=== PATIENT | female | born 1945 | race Caucasian/White ===

== ENCOUNTER 2017-11-04 12:36 | Emergency (ER) | payer OTHER, SELFPAY ==
--- NOTE | 2017-11-04 13:04 | ED_ITS ---
HPI - Extremity Injury (Lower) <Angel JimenezBEN skelton - Last Filed: 11/04/17 21:47> General Chief Complaint: Extremity Injury, Lower Stated Complaint: THINKS SHE BROKE HER RIGHT KNEE Time Seen by Provider: 11/04/17 13:04 History of Present Illness HPI Narrative: 72-year-old female here for complaint of pain into her right knee and right lower extremity. She states that shortly prior to arrival that she had a ground level fall inside her garden today where she landed on her right knee. She reports pain is to the right knee that radiates down into the tib-fib area. Increased pain with motion of the right knee and with weight- bearing. Pain is limited to the right lower extremity and knee. She denies any other injuries. Patient feels that she twisted the knee and she fell. No other concerns or complaints. MD complaint: knee injury Related Data Home Medications Medication Instructions Recorded Confirmed aspirin 81 mg PO DAILY #0 03/03/11 11/04/17 Glucose: Home Monitoring Kit 1 kit DIRECTED 11/04/17 11/04/17 Nebulizer: Home Unit 1 pkg DIRECTED 11/04/17 11/04/17 Spacer: Inhaler Spacer Device 1 pac DIRECTED 11/04/17 11/04/17 beclomethasone dipropionate [Qvar] 1 puff INH BID 11/04/17 11/04/17 clopidogrel 1 tab PO DAILY 11/04/17 11/04/17 diltiazem HCl [DILT-XR] 1 cap PO BID 11/04/17 11/04/17 ipratropium bromide 2.5 ml INH BID PRN 11/04/17 11/04/17 omeprazole 20 mg PO QPM 11/04/17 11/04/17 sertraline 150 mg PO BEDTIME 11/04/17 11/04/17 Previous Rx's Medication Instructions Recorded furosemide [Lasix] 20 mg PO QDAY #30 tab 01/28/16 nitroglycerin [Nitrostat] 0.4 mg SUBLINGUAL PRN #30 tab 07/20/16 levalbuterol HCl [Xopenex] 0.63 mg INH Q4HP PRN #2 box 09/18/16 metformin 1,000 mg PO BIDCC #180 tab 11/12/16 levalbuterol tartrate [Xopenex HFA] 2 puff INH Q4HP PRN #15 gm 03/31/17 potassium chloride 10 meq PO QDAY #30 tab 07/02/17 Allergies Allergy/AdvReac Type Severity Reaction Status Date / Time amoxicillin [AMOXICILLIN] Allergy Mild GI Unverified 08/25/17 12:27 erythromycin base Allergy Mild N/V Unverified 08/25/17 12:27 [ERYTHROMYCIN BASE] lanolin [LANOLIN] Allergy Mild Roof of Unverified 08/25/17 12:27 mouth tastes greasy Review of Systems <BEN Tony - Last Filed: 11/04/17 21:47> Constitutional Denies chills, Denies fever(s), Denies lethargy and Denies weakness Eyes Denies change in vision, Denies eye discharge, Denies irritation and Denies loss of vision ENT Ears, Nose, Mouth, and Throat: Denies change in voice, Denies neck pain and Denies sore throat Cardiovascular Denies chest pain, Denies irregular heart rhythm, Denies lightheadedness, Denies palpitations, Denies dyspnea, Denies dyspnea on exertion and Denies orthopnea Respiratory Denies cough, Denies dyspnea, Denies dyspnea on exertion and Denies wheezing Gastrointestinal Gastrointestinal: Denies abdominal pain, Denies change in bowel habits, Denies diarrhea, Denies nausea and Denies vomiting Genitourinary Denies hematuria, Denies flank pain, Denies urinary incontinence and Denies urinary urgency Musculoskeletal Denies neck pain Comments: Left knee and left lower extremity pain Integumentary/Breasts Denies pruritus, Denies erythema, Denies rash and Denies wounds Neurologic Denies confusion, Denies loss of vision and Denies weakness Psychiatric Denies anxiety, Denies confusion, Denies depression, Denies homicidal ideation and Denies suicidal ideation Endocrine Denies palpitations Allergic/Immunologic Denies wheezing Exam <BEN Tony - Last Filed: 11/04/17 21:47> Initial Vital Signs Initial Vital Signs: Vital Signs Pulse Rate 57 L 11/04/17 13:09 Respiratory Rate 21 11/04/17 13:09 Blood Pressure 127/68 H 11/04/17 13:09 Pulse Oximetry 96 11/04/17 13:09 Const General: cooperative and well developed Nutritional Appearance: well nourished Orientation: alert, awake, oriented x3 and not confused HENMT Mouth: oral mucosae normal and moist mucous membranes Eyes Conjunctivae: conjunctivae normal Sclera: sclerae normal Pupils: PERRL EOM: EOM intact bilaterally Resp Effort & Inspection: normal respiratory effort, able to speak in complete sentences, no respiratory distress and no use of accessory muscles Auscultation: clear to auscultation bilaterally, no rales, no rhonchi and no wheezes Cardio Rate: regular rate Rhythm: regular rhythm Heart Sounds: no click, no gallops, no murmurs and no rubs Pulses: normal peripheral pulses Skin General: no rashes or lesions noted, No jaundice and No petechiae Extrem Other: Right knee with no swelling and no ecchymosis. No deformities. Right tib- fib area with no signs of trauma. Distal sensation is intact. Distal range of motion is intact. Distal pulses intact. Negative anterior posterior drawer sign <Aldair Boyle DO - Last Filed: 11/05/17 07:15> Initial Vital Signs Initial Vital Signs: Vital Signs Pulse Rate 57 L 11/04/17 13:09 Respiratory Rate 21 11/04/17 13:09 Blood Pressure 127/68 H 11/04/17 13:09 Pulse Oximetry 96 11/04/17 13:09 Course <BEN Tony - Last Filed: 11/04/17 21:47> Orders Ordered: Discontinued Medications Ibuprofen (Advil) 400 mg PO NOW ONE Stop: 11/04/17 13:26 Last Admin: 11/04/17 13:53 Dose: 400 mg Vital Signs - 8 hr 11/04/17 14:37 Pulse Rate 70 Blood Pressure [Left Arm] 118/71 Pulse Oximetry 93 <DO Vamsi Wood Last Filed: 11/05/17 07:15> Orders Ordered: Discontinued Medications Ibuprofen (Advil) 400 mg PO NOW ONE Stop: 11/04/17 13:26 Last Admin: 11/04/17 13:53 Dose: 400 mg Vital Signs - 8 hr 11/04/17 14:37 Pulse Rate 70 Blood Pressure [Left Arm] 118/71 Pulse Oximetry 93 MDM - Extremity Injury (Lower) <BEN Tony - Last Filed: 11/04/17 21:47> Imaging Data R knee: Radiologist's impression: PROCEDURE: XR KNEE RT 3V INDICATIONS: Ground level fall with pain into right knee and lower leg TECHNIQUE: 3 views of the knee were acquired. COMPARISON: [facility], KNEE 1-2 VIEWS RIGHT, 03/25/2013, 11:37. [facility], XR TIBIA FIBULA RT 2V, 11/04/2017, 13:10. [facility], KNEE 3V RIGHT, 08/17/2015, 17:40. FINDINGS: Bones: No displaced fractures are seen. Degenerative changes are seen, with moderate to severe lateral femorotibial joint space narrowing seen. There is associated remodeling changes with osteophyte formation along the jointline. On the sunrise view, there is mild to moderate patellofemoral joint space narrowing seen. Osteophyte formation can be seen along the margins of the patella. No suspicious lytic or blastic lesions are seen. Soft tissues: There is a mild joint effusion. No suspicious soft tissue calcifications. IMPRESSION: No acute bony abnormality is detected. Osteoarthritic degenerative changes are seen, which are most prominent involving the lateral femorotibial compartment. Dictated by: Shai Moore M.D. on 11/04/2017 at 12:46 Approved by: Shai Moore M.D. on 11/04/2017 at 12:47 Right tib-fib : Radiologist's impression: PROCEDURE: XR TIBIA FUBULA RT 2V INDICATIONS: Ground level fall with pain to right knee and lower leg TECHNIQUE: 2 views of the tibia and fibula were acquired. COMPARISON: [facility], , XR KNEE RT 3V, 11/04/2017, 13:10. FINDINGS: Bones: No fractures or dislocations. No suspicious bony lesions. Degenerative changes are seen, particularly affecting the lateral femorotibial compartment. Soft tissues: No suspicious soft tissue calcifications or masses. IMPRESSION: No fractures are seen. Dictated by: Shai Moore M.D. on 11/04/2017 at 12:48 Approved by: Shai Moore M.D. on 11/04/2017 at 12:48 MDM Narrative Medical decision making narrative: X-rays of the right knee and right tib-fib were negative for any acute findings. Signs and symptoms presents as sprain / contusion to the right knee. She is placed in a knee immobilizer for comfort and support. Patient offered crutches however she recently had surgery to her hands so will not be able to tolerate crutches. She is encouraged to use wheelchair until able to bear weight without any discomfort. [id number] Tylenol or Motrin as needed for any discomfort. Ice and elevation. Follow up with primary care provider the next few days. Return emergency room for any worsening symptoms. Discharge Plan Departure Patient Disposition: Home, Self-Care Clinical Impression: Knee pain, right Discharge Date/Time: 11/04/17 14:49 Interventions: ED Discharge Assessment Last Done: 11/04/17 14:46 Instructions: DI for Knee Pain Activity Restrictions/Additional Instructions: X-rays of the right knee and right lower extremity were obtained were negative for any acute fractures. Signs and symptoms presents as sprain/bruise to the right knee. You have been placed in the immobilizer for comfort and support use as directed. Recommend using wheelchair for nonweightbearing until able to bear weight without discomfort. Use [id number] Tylenol or Motrin as needed for any discomfort. Ice and elevation help with swelling. Follow up with her primary care provider for further evaluation in the next few days. Return emergency room for any worsening symptoms. Prescriptions: No Action aspirin 81 mg Tablet,Delayed Release (Dr/Ec) 81 mg PO DAILY Qty: 0 RF: 0 furosemide [Lasix] 20 MG tablet 20 mg PO QDAY Qty: 30 RF: 4 nitroglycerin [Nitrostat] 0.4 MG tablet, sublingual 0.4 mg Sublingual PRN Qty: 30 RF: 0 levalbuterol HCl [Xopenex] 0.63 MG/3 ML solution for nebulization 0.63 mg INH Q4HP PRNQty: 2 RF: 2 metformin 1,000 MG tablet 1,000 mg PO BIDCC Qty: 180 RF: 3 levalbuterol tartrate [Xopenex HFA] 45 MCG/INH HFA aerosol inhaler 2 puff INH Q4HP PRNQty: 15 RF: 0 potassium chloride 10 MEQ tablet extended release 10 meq PO QDAY Qty: 30 RF: 5 sertraline 100 MG tablet 150 mg PO BEDTIME RF: 0 beclomethasone dipropionate [Qvar] 80 MCG/PUFF aerosol 1 puff INH BID RF: 0 ipratropium bromide 0.2 MG/1 ML solution 2.5 ml INH BID PRN (Reason: Shortness Of Breath) RF: 0 omeprazole 20 MG tablet,delayed release (DR/EC) 20 mg PO QPM RF: 0 Glucose: Home Monitoring Kit 1 kit DIRECTED RF: 0 Spacer: Inhaler Spacer Device 1 pac DIRECTED RF: 0 Nebulizer: Home Unit 1 pkg DIRECTED RF: 0 clopidogrel 75 mg Tablet 1 tab PO DAILY RF: 0 diltiazem HCl [DILT-XR] 120 mg Capsule,Ext.Rel 24h Degradable 1 cap PO BID RF: 0 Referrals: Shelia Godinez DO [Primary Care Provider] - <Aldair Boyle DO - Last Filed: 11/05/17 07:15> Cosign ED Attending Landen[place] Attestation: I was available for consultation during this patient's emergency department encounter
[2017-11-04 13:09] VITALS: BP 127/68; PULSE 57; RESP 21; O2SAT 96
[2017-11-04 13:23] VITALS: PULSE 57; RESP 21; O2SAT 96; BMI 34.3
--- NOTE | 2017-11-04 13:25 | DI.RAD.S_ITS ---
PROCEDURE: XR TIBIA FUBULA RT 2V INDICATIONS: Ground level fall with pain to right knee and lower leg TECHNIQUE: 2 views of the tibia and fibula were acquired. COMPARISON: [facility], , XR KNEE RT 3V, 11/04/2017, 13:10. FINDINGS: Bones: No fractures or dislocations. No suspicious bony lesions. Degenerative changes are seen, particularly affecting the lateral femorotibial compartment. Soft tissues: No suspicious soft tissue calcifications or masses. IMPRESSION: No fractures are seen. Dictated by: Shai Moore M.D. on 11/04/2017 at 12:48 Approved by: Shai Moore M.D. on 11/04/2017 at 12:48
--- NOTE | 2017-11-04 13:25 | DI.RAD.S_ITS ---
PROCEDURE: XR KNEE RT 3V INDICATIONS: Ground level fall with pain into right knee and lower leg TECHNIQUE: 3 views of the knee were acquired. COMPARISON: [facility], , KNEE 1-2 VIEWS RIGHT, 03/25/2013, 11:37. [facility], , XR TIBIA FIBULA RT 2V, 11/04/2017, 13:10. [facility], , KNEE 3V RIGHT, 08/17/2015, 17:40. FINDINGS: Bones: No displaced fractures are seen. Degenerative changes are seen, with moderate to severe lateral femorotibial joint space narrowing seen. There is associated remodeling changes with osteophyte formation along the jointline. On the sunrise view, there is mild to moderate patellofemoral joint space narrowing seen. Osteophyte formation can be seen along the margins of the patella. No suspicious lytic or blastic lesions are seen. Soft tissues: There is a mild joint effusion. No suspicious soft tissue calcifications. IMPRESSION: No acute bony abnormality is detected. Osteoarthritic degenerative changes are seen, which are most prominent involving the lateral femorotibial compartment. Dictated by: Shai Moore M.D. on 11/04/2017 at 12:46 Approved by: Shai Moore M.D. on 11/04/2017 at 12:47
[2017-11-04] MEDS: IBUPROFEN 400 MG TABLET PO (13:53)
[2017-11-04 14:37] VITALS: BP 118/71; PULSE 70; O2SAT 93
== END 2017-11-04 14:49 | disposition home or self-care (01) ==
PROVIDERS: Emergency Provider Nurse Practitioner Family; PCP Family Medicine
DX: M25.561 Pain in right knee (principal); W18.30XA Fall on same level, unspecified, initial encounter
CPT/HCPCS: 73562; 73590; 99283

== ENCOUNTER → 2018-05-13 11:57 | Outpatient (CLI) | payer OTHER, MEDICARE, SELFPAY ==
[2018-05-13 12:33] LABS: Add Manual Diff / Slide Review NO; Basophils Percent Auto 0.6 % (0-2); Hematocrit 40.2 % (36-46); Hemoglobin 13.4 g/dL (12.0-16.0); Lymphocytes Percent Auto 21.7 % (25-40); Mean Corpuscular HGB Conc 33.2 % (30-36); Mean Corpuscular Hemoglobin 28.3 PG (26-34); Monocytes Percent Auto 4.1 % (3-14); Neutrophils Absolute Auto 5300 /uL (1500-7000); Neutrophils Percent Auto 71.6 % (50-75); Platelet Count 260 X10^3/uL (150-400); Red Blood Cell Count 4.73 X10^6/uL (4.0-5.2); Red Cell Distribution Width 14.7 % (11.6-14.8); White Blood Cell Count 7.3 X10^3/uL (4.5-11.0)
[2018-05-13 12:45] LABS: Hemoglobin A1C% w Est Avg Glu 8.4 % (4.0-6.0)
[2018-05-13 13:00] LABS: Alanine Aminotransferase 20 IU/L (9-52); Albumin 4.6 g/dL (3.5-5.0); Albumin Globulin Ratio 1.4 (1.0-2.8); Alkaline Phosphatase 87 U/L (38-126); Aspartate Aminotransferase 22 IU/L (14-36); Bilirubin Total 0.7 mg/dL (0.2-1.3); Blood Urea Nitrogen 18 mg/dL (7-17); Calcium 9.3 mg/dL (8.4-10.2); Carbon Dioxide 29 mmol/L (22-32); Chloride 101 mmol/L (98-107); Cholesterol 148 mg/dL (140-199); Estimated Glomerular Filt Rate 54.7 mL/min (>60); Globulin 3.3 g/dL (1.7-4.1); Glucose 250 mg/dL (80-110); HDL Cholesterol 38 mg/dL (40-60); HEMOLYSIS < 15 (0-50); LDL Cholesterol Calculated 71 mg/dL (<100); Sodium 147 mmol/L (137-145); Total Protein 7.9 g/dL (6.3-8.2); Triglycerides 196 mg/dL (35-150)
== END ==
PROVIDERS: PCP Family Medicine; Visit Provider Family Medicine
DX: E66.9 Obesity, unspecified (principal); E78.5 Hyperlipidemia, unspecified; F32.9 Major depressive disorder, single episode, unspecified; I10 Essential (primary) hypertension; I48.91 Unspecified atrial fibrillation; E11.9 Type 2 diabetes mellitus without complications
CPT/HCPCS: 36415; 80053; 80061; 83036; 85025

== ENCOUNTER → 2018-11-24 16:19 | Outpatient (CLI) | payer OTHER, MEDICARE, SELFPAY ==
[2018-11-24 17:21] LABS: Hemoglobin A1C% w Est Avg Glu 8.5 % (4.0-6.0)
[2018-11-24 19:04] LABS: Alanine Aminotransferase 18 IU/L (9-52); Albumin 4.5 g/dL (3.5-5.0); Albumin Globulin Ratio 1.3 (1.0-2.8); Alkaline Phosphatase 89 U/L (38-126); Aspartate Aminotransferase 22 IU/L (14-36); Bilirubin Total 0.8 mg/dL (0.2-1.3); Blood Urea Nitrogen 21 mg/dL (7-17); Calcium 9.7 mg/dL (8.4-10.2); Carbon Dioxide 29 mmol/L (22-32); Chloride 102 mmol/L (98-107); Estimated Glomerular Filt Rate 54.7 mL/min (>60); Globulin 3.4 g/dL (1.7-4.1); Glucose 183 mg/dL (80-110); HEMOLYSIS < 15 (0-50); Potassium 4.3 mmol/L (3.4-5.1); Sodium 144 mmol/L (137-145); Total Protein 7.9 g/dL (6.3-8.2)
== END ==
PROVIDERS: PCP Family Medicine; Visit Provider Family Medicine
DX: E11.9 Type 2 diabetes mellitus without complications (principal)
CPT/HCPCS: 36415; 80053; 83036

== ENCOUNTER 2019-04-20 10:16 | Emergency (ER) | payer OTHER, SELFPAY ==
--- NOTE | 2019-04-20 10:32 | DI.RAD.S_ITS ---
PROCEDURE: XR KNEE RT 3V INDICATIONS: multiple falls - right knee pain TECHNIQUE: 3 views of the knee were acquired. COMPARISON: [facility], , XR KNEE RT 3V, 11/04/2017, 13:10. FINDINGS: Bones: No fractures or dislocations. No suspicious bony lesions. Moderate tricompartmental periarticular osteophyte formation. Soft tissues: Small knee joint effusion. No suspicious soft tissue calcifications. IMPRESSION: 1. Osteoarthritis. 2. Small knee joint effusion. 3. No acute fracture. No osseous lesion. If symptoms and/or clinical suspicion for pathology persist, further assessment with repeat, or advanced imaging (e.g., CT, MRI, or bone scan) may be helpful for further assessment. Dictated by: Radha Alfonso M.D. on 04/20/2019 at 11:04 Approved by: Radha Alfonso M.D. on 04/20/2019 at 11:06
[2019-04-20 10:34] VITALS: BP 164/79; PULSE 79; RESP 18; TEMP 36.9; O2SAT 95
--- NOTE | 2019-04-20 11:32 | PC.NURSE ---
Patient reports she was lifting daugther into wheelchair about a month ago and twisted her right knee and states she felt the two bones pop and touch each other and grind against each other. She states she has had multiple surgeries on the right knee in the past. She reports she stayed off of the knee for a week and iced it but it is still very painful when she walks on the right lateral portion of knee where it connects to the tibia/fibula. Also reports swelling. States she is afraid she may have a hairline fracture and wants to be sure. Has an MRI of knee scheduled for wednesday.
--- NOTE | 2019-04-20 11:55 | ED.LOWEXIN ---
HPI - Extremity Injury (Lower) <Kely Vogt PA-C - Last Filed: 04/20/19 20:33> General Chief Complaint: Extremity Injury, Lower Stated Complaint: hurt r knee month ago getting worse Time Seen by Provider: 04/20/19 11:07 Source: patient Mode of arrival: Ambulatory Limitations: no limitations History of Present Illness HPI Narrative: This 74-year-old female comes to ED secondary to persistent right knee pain, worsening over the last month or so after she pivoted awkwardly and twisted it. She has continued to have increased pain including in the last week. She indicates a ?hot spot? on the lateral side of the knee where it feels like the bones grind and there is an area that mcgregor and radiates down to her ankle at times. She states that multiple times yesterday she felt like the knee slipped sideways and causes a grinding sensation. It feels unstable. She has not had any additional falls. She feels like this is somewhat reminiscent of her previous meniscal injuries, having increasing difficulty doing ADLs that requiring walking. She denies any other new complaints on systems review today such as other joint pains. She does have an MRI scheduled yesterday. She has had to meniscal repairs on that knee and some type of bone fragment or cyst removed in the past. Related Data Home Medications Medication Instructions Recorded Confirmed aspirin 81 mg PO DAILY #0 03/03/11 04/14/19 Glucose: Home Monitoring Kit 1 kit DIRECTED 11/04/17 04/14/19 Nebulizer: Home Unit 1 pkg DIRECTED 11/04/17 04/14/19 Spacer: Inhaler Spacer Device 1 pac DIRECTED 11/04/17 04/14/19 diltiazem HCl [DILT-XR] 1 cap PO BID 11/04/17 04/20/19 ipratropium bromide 2.5 ml INH BID PRN 11/04/17 04/14/19 atorvastatin 40 mg PO DAILY 04/20/19 04/20/19 furosemide [Lasix] 20 mg PO DAILY 04/20/19 04/20/19 lisinopril 20 mg PO DAILY 04/20/19 04/20/19 potassium chloride 10 meq PO DAILY 04/20/19 04/20/19 rivaroxaban [Xarelto] 20 mg PO DAILY 04/20/19 04/20/19 Previous Rx's Medication Instructions Recorded nitroglycerin [Nitrostat] 0.4 mg SUBLINGUAL PRN #30 tab 07/20/16 levalbuterol HCl [Xopenex] 0.63 mg INH Q4HP PRN #2 box 09/18/16 levalbuterol tartrate [Xopenex HFA] 2 puff INH Q4HP PRN #15 gm 03/31/17 beclomethasone dipropionate 80 1 puff INHALATION BID #10.6 gram 07/26/18 mcg/actuation HFA breath activated aerosol glipizide 5 mg tablet 2.5 mg PO DAILY #30 tab 11/24/18 glucagon (human recombinant) 1 mg 1 mg IM ONCE #1 each 11/24/18 solution for injection metformin 500 mg tablet,extended 250 mg PO QPM #30 tab 04/05/19 release 24 hr omeprazole 20 mg capsule,delayed 20 mg PO DAILY #30 cap 04/05/19 release sertraline 100 mg tablet 200 mg PO BEDTIME #180 tab 04/05/19 Allergies Allergy/AdvReac Type Severity Reaction Status Date / Time amoxicillin [AMOXICILLIN] Allergy Mild GI Verified 04/14/19 09:14 erythromycin base Allergy Mild N/V Verified 04/14/19 09:14 [ERYTHROMYCIN BASE] lanolin [LANOLIN] Allergy Mild Roof of Verified 04/14/19 09:14 mouth tastes greasy Review of Systems <Kely Vogt PA-C - Last Filed: 04/20/19 20:33> Review of Systems ROS Unobtainable: All systems reviewed & are unremarkable except as noted in HPI and below Patient History <Kely Vogt PA-C - Last Filed: 04/20/19 20:33> Medical History Atrial fibrillation (Acute) CAD (coronary artery disease) (Acute) Cervicalgia (Acute) Diabetes mellitus (Acute) Hematuria (Acute) Hyperlipidemia (Acute) Hypertension (Acute) Right knee dislocation (Acute) Right trigger finger (Acute) Shoulder pain, bilateral (Acute) Surgical History History of carpal tunnel repair (~2013) History of carpal tunnel repair (~1998) History of repair of atrial septal defect (Resolved) Status post arthroscopy (03/16/13) Status post cardiac catheterization (~2011) Status post excision of lipoma (Resolved ~07/17/08) Family History Father CAD (coronary artery disease) CVA (cerebral infarction) Hypertension Mother Abdominal aortic aneurysm without rupture Social History Smoking Status: Current every day smoker Smoking Status: Current every day smoker Substance Use Type: does not use Exam <Kely Vogt PA-C - Last Filed: 04/20/19 20:33> Narrative Exam Narrative: GENERAL APPEARANCE: Patient sitting comfortably, in no distress. PULMONARY: Lungs clear to auscultation bilaterally CV: Regular rhythm regular without murmur, normal S1 and S2, no S3 or S4 MUSCULOSKELETAL: No point tenderness over right knee medial joint line, tender at and inferior to the lateral joint line. No clear effusion. She is able to actively flex the to about 60? with some tenderness. She can extend to about 10?. Unable to obtain passive ROM exam or drawer test secondary to tenderness NEUROVASCULAR: Right lower extremity sensation grossly intact, right foot is warm and pink with intact pulses Initial Vital Signs Initial Vital Signs: Vital Signs Temperature 98.4 F 04/20/19 10:34 Pulse Rate 79 04/20/19 10:34 Respiratory Rate 18 04/20/19 10:34 Blood Pressure 164/79 H 04/20/19 10:34 Pulse Oximetry 95 04/20/19 10:34 <Mary King MD - Last Filed: 04/29/19 06:49> Initial Vital Signs Initial Vital Signs: Vital Signs Temperature 98.4 F 04/20/19 10:34 Pulse Rate 79 04/20/19 10:34 Respiratory Rate 18 04/20/19 10:34 Blood Pressure 164/79 H 04/20/19 10:34 Pulse Oximetry 95 04/20/19 10:34 Course <Kely Vogt PA-C - Last Filed: 04/20/19 20:33> Course Additional Information: Patient brought a cane and was able to ambulate comfortably with this and knee immobilizer. She will proceed with MRI and follow-up as planned. Orders Ordered: ED Orders 04/20/19 10:32 XR knee RT 3V Stat Vital Signs Vital signs: Vital Signs - 8 hr 04/20/19 10:34 Temperature 98.4 F Pulse Rate 79 Respiratory Rate 18 Blood Pressure 164/79 H Pulse Oximetry 95 <Mary King MD - Last Filed: 04/29/19 06:49> Orders Ordered: ED Orders 04/20/19 10:32 XR knee RT 3V Stat Vital Signs Vital signs: Vital Signs - 8 hr 04/20/19 10:34 Temperature 98.4 F Pulse Rate 79 Respiratory Rate 18 Blood Pressure 164/79 H Pulse Oximetry 95 MDM - Extremity Injury (Lower) <Kely Vogt PA-C - Last Filed: 04/20/19 20:33> Imaging Data knee: Radiologist's impression: [address] [address] XRay Report Signed Patient: Idris Lion RMR#: [id number] : 7Acct:[id number] Age/Sex: 74 / FDate of Service: 04/20/19 Loc: ED Accession Number: [id number] Procedure: XR knee RT 3V Ordering Provider: Mary King MD PROCEDURE: XR KNEE RT 3V INDICATIONS: multiple falls - right knee pain TECHNIQUE: 3 views of the knee were acquired. COMPARISON: [facility], , XR KNEE RT 3V, 11/04/2017, 13:10. FINDINGS: Bones: No fractures or dislocations. No suspicious bony lesions. Moderate tricompartmental periarticular osteophyte formation. Soft tissues: Small knee joint effusion. No suspicious soft tissue calcifications. IMPRESSION: 1. Osteoarthritis. 2. Small knee joint effusion. 3. No acute fracture. No osseous lesion. If symptoms and/or clinical suspicion for pathology persist, further assessment with repeat, or advanced imaging (e.g., CT, MRI, or bone scan) may be helpful for further assessment. Dictated by: Radha Alfonso M.D. on 04/20/2019 at 11:04 Approved by: Radha Alfonso M.D. on 04/20/2019 at 11:06 Discharge Plan Departure Patient Disposition: Home Clinical Impression: Arthritis of right knee Internal derangement of knee Qualifiers: Laterality: right Qualified Code(s): M23.91 - Unspecified internal derangement of right knee Discharge Date/Time: 04/20/19 12:33 Instructions: DI for Meniscal Tear Activity Restrictions/Additional Instructions: I suspect as you do that you have another soft tissue injury, such as meniscal tear, on top of your arthritis which is causing your pain and instability. Since the knee immobilizer brace seems to be helping, please use that whenever you are weight-bearing and continue using or cane. Please get to your MRI on Wednesday as scheduled, and follow up with your PCP so that you can get set up again with orthopedics if needed. Prescriptions: No Action aspirin 81 mg Tablet,Delayed Release (Dr/Ec) 81 mg PO DAILY Qty: 0 RF: 0 nitroglycerin [Nitrostat] 0.4 MG tablet, sublingual 0.4 mg Sublingual PRN Qty: 30 RF: 0 levalbuterol HCl [Xopenex] 0.63 MG/3 ML solution for nebulization 0.63 mg INH Q4HP PRNQty: 2 RF: 2 levalbuterol tartrate [Xopenex HFA] 45 MCG/INH HFA aerosol inhaler 2 puff INH Q4HP PRNQty: 15 RF: 0 Qvar RediHaler 80 mcg/actuation HFA aerosol breath activated 1 puff INHALATION BID Qty: 10.6 RF: 3 sertraline 100 mg tablet 200 mg PO BEDTIME Qty: 180 RF: 1 metformin 500 mg tablet extended release 24 hr 250 mg PO QPM Qty: 30 RF: 2 omeprazole 20 mg capsule,delayed release(DR/EC) 20 mg PO DAILY Qty: 30 RF: 6 glipizide 5 mg tablet 2.5 mg PO DAILY Qty: 30 RF: 3 Glucagon Emergency Kit (human) 1 mg recon soln 1 mg IM ONCE Qty: 1 RF: 0 ipratropium bromide 0.2 MG/1 ML solution 2.5 ml INH BID PRN (Reason: Shortness Of Breath) RF: 0 Glucose: Home Monitoring Kit 1 kit DIRECTED RF: 0 Spacer: Inhaler Spacer Device 1 pac DIRECTED RF: 0 Nebulizer: Home Unit 1 pkg DIRECTED RF: 0 diltiazem HCl [DILT-XR] 120 mg Capsule,Ext.Rel 24h Degradable 1 cap PO BID RF: 0 atorvastatin 40 mg Tablet 40 mg PO DAILY RF: 0 lisinopril 20 mg Tablet 20 mg PO DAILY RF: 0 Xarelto 20 mg Tablet 20 mg PO DAILY RF: 0 potassium chloride 10 mEq tablet extended release 10 meq PO DAILY RF: 0 furosemide [Lasix] 20 MG tablet 20 mg PO DAILY RF: 0 Referrals: [facility] [Provider Group] Shelia Godinez DO [Primary Care Provider] -
[2019-04-20 12:30] VITALS: BP 148/68; PULSE 67; RESP 16; O2SAT 99
== END 2019-04-20 12:33 | disposition home or self-care (01) ==
PROVIDERS: Emergency Provider Internal Medicine; PCP Family Medicine
DX: M17.11 Unilateral primary osteoarthritis, right knee (principal); M23.91 Unspecified internal derangement of right knee
CPT/HCPCS: 73562; 99283

== ENCOUNTER → 2019-04-22 09:42 | Outpatient (CLI) | payer OTHER, SELFPAY ==
--- NOTE | 2019-04-22 09:47 | DI.MRI.S_ITS ---
PROCEDURE: MR KNEE RT WO CON INDICATIONS: Right knee pain TECHNIQUE: Noncontrast sagittal PD fast spin echo and T2 fast spin echo with fat saturation, sagittal 3-D FLASH with fat saturation; coronal T1 spin echo and PD fast spin echo with fat saturation, and axial PD fast spin echo with fat saturation through the knee. COMPARISON: [facility], CR, XR KNEE RT 3V, 04/20/2019, 10:38. FINDINGS: Image quality: Motion degraded examination. Menisci: Fraying of the free margin of the posterior horn of the medial meniscus image 22 series 11, image 23 series 8 Circumferential lateral meniscal tear involving the posterior horn, body and anterior horn. There is possible complete extrusion of the lateral meniscal body seen on image 16 series 11. Adjacent chronic appearing fracture of the lateral tibial plateau versus ununited osteophyte Cruciate ligaments: Anterior cruciate ligament appears intact although thinned appearance likely chronic. Posterior cruciate ligament appears intact. Medial structures: The medial collateral ligament appears intact. Semimembranosus tendon appears intact. Visualized portions of the pes anserinus tendons appear normal. No abnormal bursal fluid. Lateral structures: The lateral collateral ligament intact. Biceps femoris tendon appears intact. Popliteus tendon grossly unremarkable. Iliotibial band appears intact. Anterior structures: Quadriceps tendon intact. Medial and lateral patellofemoral ligaments intact. There is mild distal patellar tendinopathy. Prepatellar and superficial infrapatellar subcutaneous edema/fluid. Bones and cartilage: No focal marrow contusion or discrete low signal fracture line. Within the medial compartment, near full-thickness loss of the central weightbearing the femoral articular cartilage. The tibial cartilage appears grossly intact Within the lateral compartment, diffuse partial-thickness loss of the femoral and tibial cartilage Within the patellofemoral compartment, diffuse partial-thickness loss of the trochlear and patellar cartilage. There is also partial-thickness loss of the posterior nonweightbearing medial femoral condyle cartilage, and full thickness denudation of the nonweightbearing posterior lateral femoral condyle cartilage Joint space: No pathologic joint effusion. Large Oscar's cyst measuring approximately 7 cm in the cephalocaudad dimension. No specific evidence of intra-articular loose body, although motion artifact degrades evaluation. IMPRESSION: Circumferential lateral meniscal tear as discussed above Blunting and fraying of the free margin of the posterior medial meniscus Ununited osteophyte versus Segond fracture of the lateral tibial plateau. This finding appears chronic Thinned appearance of the anterior cruciate ligament raising possibility of (chronic) partial rupture Large Oscar's cyst Tricompartmental degeneration as above Dictated by: Nash Bourne M.D. on 04/24/2019 at 9:08 Approved by: Nash Bourne M.D. on 04/24/2019 at 9:34
== END ==
PROVIDERS: PCP Family Medicine; Visit Provider Family Medicine
DX: M25.561 Pain in right knee (principal); S83.281A Other tear of lateral meniscus, current injury, right knee, initial encounter; M71.21 Synovial cyst of popliteal space [Baker], right knee
CPT/HCPCS: 73721

== ENCOUNTER → 2020-02-02 09:22 | Outpatient (CLI) | payer OTHER, SELFPAY ==
[2020-02-02 10:26] LABS: Hemoglobin A1C% w Est Avg Glu 7.5 % (4.0-6.0)
[2020-02-02 10:27] LABS: Alanine Aminotransferase 14 IU/L (<35); Albumin 4.3 g/dL (3.5-5.0); Albumin Globulin Ratio 1.3 (1.0-2.8); Alkaline Phosphatase 95 U/L (38-126); Aspartate Aminotransferase 22 IU/L (14-36); BUN Creatinine Ratio 14.5 (6-22); Bilirubin Total 1.1 mg/dL (0.2-1.3); Blood Urea Nitrogen 10 mg/dL (7-17); Calcium 8.4 mg/dL (8.4-10.2); Carbon Dioxide 35 mmol/L (22-32); Chloride 103 mmol/L (98-107); Cholesterol 119 mg/dL (140-199); Estimated Glomerular Filt Rate > 60.0 mL/min (>60); Globulin 3.3 g/dL (1.7-4.1); Glucose 187 mg/dL (80-110); HDL Cholesterol 30 mg/dL (40-60); HEMOLYSIS < 15 (0-50); LDL Cholesterol Calculated 68 mg/dL (<100); Potassium 4.2 mmol/L (3.4-5.1); Sodium 146 mmol/L (137-145); Total Protein 7.6 g/dL (6.3-8.2); Triglycerides 106 mg/dL (35-150)
[2020-02-02 10:31] LABS: Add Manual Diff / Slide Review NO; Basophils Absolute Auto 0 /uL (0-100); Basophils Percent Auto 0.4 % (0-2); Eosinophils Absolute Auto 200 /uL (0-450); Eosinophils Percent Auto 3.2 % (2-4); Hematocrit 36.4 % (36-46); Hemoglobin 11.8 g/dL (12.0-16.0); Lymphocytes Absolute Auto 1300 /uL (1100-4500); Lymphocytes Percent Auto 22.4 % (25-40); Mean Corpuscular HGB Conc 32.3 % (30-36); Mean Corpuscular Hemoglobin 27.3 PG (26-34); Mean Corpuscular Volume 84.6 fL (80-100); Monocytes Absolute Auto 300 /uL (0-900); Monocytes Percent Auto 5.5 % (3-14); Neutrophils Absolute Auto 3900 /uL (1500-7000); Neutrophils Percent Auto 68.5 % (50-75); Platelet Count 257 X10^3/uL (150-400); Red Cell Distribution Width 14.7 % (11.6-14.8); White Blood Cell Count 5.7 X10^3/uL (4.5-11.0)
[2020-02-02 10:56] LABS: Creatinine Urine Random 125.1 mg/dL
[2020-02-02 11:07] LABS: Microalbumi Creatinin Ratio Ur 290.9 ug/mg CR (<30); Microalbumin Urine Random 36.4 mg/dL (0-1.6)
== END ==
PROVIDERS: PCP Family Medicine; Referring Provider Family Medicine; Visit Provider Family Medicine
DX: I10 Essential (primary) hypertension (principal); I48.91 Unspecified atrial fibrillation; E11.9 Type 2 diabetes mellitus without complications; E78.5 Hyperlipidemia, unspecified
CPT/HCPCS: 36415; 80053; 80061; 82043; 82570; 83036; 85025

== ENCOUNTER → 2020-06-14 12:54 | Outpatient (CLI) | payer OTHER, SELFPAY ==
[2020-06-14] MEDS: COVID-19 VACC #1, MRNA(MOD) 100 MCG/0.5 ML VIAL IM (12:58)
== END ==
PROVIDERS: PCP Family Medicine; Visit Provider Internal Medicine
DX: Z23 Encounter for immunization (principal)
CPT/HCPCS: 0011A; 91301

== ENCOUNTER → 2020-06-18 14:44 | Outpatient (CLI) | payer OTHER, SELFPAY ==
--- NOTE | 2020-06-18 14:46 | DI.ECHO.S_ITS ---
[facility] +---------+ : : [address] : [address] : : : : [id number] : : : : Phone: [phone] Echocardiogram Report + + :Name: KASSY TORRES Study Date: 06/18/2020 Height: 64 in : :[facility] ReadingLocation: Weight: 198 lb : : Gender: Female BSA: 1.9 m2 : :: 1945 Age: 75 yrs BP: 129/90 mmHg: :Reason For Study: MITRAL INSUFFICIENCY : :Ordering Physician: NIEVES, : :FRIDA Performed By: Becca Saul : :Referring: DACIA ARIAS : + + Interpretation Summary The patient was in atrial fibrillation with heart rates between 62-94 bpm during the exam. The left ventricle is normal in size. The ejection fraction is estimated to be 55-60%. There has been no significant change in LVEF since the previous exam. The right ventricle is normal in size and function. There is mild to moderate mitral regurgitation. Compared to the prior echo study, there has been a decrease in the severity of mitral regurgitation. There is mild to moderate tricuspid regurgitation. Compared to the prior echo exam, there has been a decrease in TR severity. The right ventricular systolic pressure is estimated to be at least 27 mmHg based on an estimated right atrial pressure of 3 mm Hg. Procedure: A two-dimensional transthoracic echocardiogram with color flow and Doppler was performed. The study quality was technically adequate. Comparison is made with the echocardiogram of 07/08/2016. The patient was in atrial fibrillation with heart rates between 62-94 bpm during the exam. Left Ventricle: The left ventricle is normal in size. Proximal septal thickening is noted. There is no echo evidence for significant left ventricular outflow tract obstruction. There is no thrombus. The ejection fraction is estimated to be 55-60%. There has been no significant change since the previous exam. Septal motion is consistent with conduction abnormality. Diastolic function could not be accurately assessed due to atrial fibrillation. Right Ventricle: The right ventricle is normal in size and function. Atria: The left atrium is severely dilated. The left atrium has remained unchanged in size since the prior echo exam. The right atrium is moderately dilated. There is no Doppler evidence for an interatrial shunt. Mitral Valve: There is mild mitral annular calcification. There is mild to moderate mitral regurgitation. Compared to the prior echo study, there has been a decrease in the severity of mitral regurgitation. Aortic Valve: The aortic valve is trileaflet. The aortic valve opens well. There is no aortic valve stenosis. No aortic regurgitation is present. Tricuspid Valve: The tricuspid valve is normal. There is mild to moderate tricuspid regurgitation. The right ventricular systolic pressure is estimated to be at least 27 mmHg based on an estimated right atrial pressure of 3 mm Hg. Compared to the prior echo exam, there has been a decrease in TR severity. Pulmonic Valve: The pulmonic valve is not well visualized. There is no pulmonic valvular regurgitation. Great Vessels: The aortic root is normal size. The dimensions of the ascending aorta are normal. The IVC is of normal diameter and collapses greater than 50% with a sniff. This suggests a low right atrial pressure of 3 mm Hg. Pericardium/ Pleura There is no pericardial effusion. There is no pleural effusion. MMode/2D Measurements & Calculations LVIDd: 5.0 cm LVOT diam: 2.1 cm LVIDs: 3.1 cm Ao root diam: 3.0 cm FS: 37.6 % asc Aorta Diam: 2.9 cm EPSS: 1.3 cm Ao Arch Diam (Prox Trans): 2.5 cm IVSd: 0.94 cm LVPWd: 0.97 cm LV gil. diameter/BSA (cm/m^2): 2.6 LV sys. diameter/BSA (cm/m^2): 1.6 LA A2 area: 34.4 cm2 RA long axis: 5.8 cm LA A4 area: 41.4 cm2 RA area: 20.4 cm2 LA length (vol): 8.5 cm RA vol: 60.8 ml LA vol: 142.7 ml RA : 31.2 ml/m2 LA vol index: 73.3 ml/m2 IVC diam: 1.6 cm RVD1 (basal): 3.1 cm TAPSE: 1.9 cm Doppler Measurements & Calculations Ao V2 max: 115.7 cm/sec LVOT Max Nayan: 76.8 cm/sec Ao V2 mean: 76.4 cm/sec LV V1 max P.4 mmHg Ao max P.4 mmHg LV V1 VTI: 13.2 cm Ao mean P.8 mmHg GORGE(I,D): 2.4 cm2 Ao V2 VTI: 19.8 cm GORGE(V,D): 2.4 cm2 sev ratio: 0.67 GORGE indexed to BSA (cm^2/m^2): 1.2 MV E max nayan: 88.0 cm/sec TR max nayan: 243.6 cm/sec MV A max nayan: 1.7 cm/sec TR max P.7 mmHg MV E/A: 50.9 PA V2 max: 49.2 cm/sec Med Peak E' Nayan: 8.5 cm/sec PA V2 mean: 33.6 cm/sec E/E' med: 10.3 PA mean P.50 mmHg Lat Peak E' Nayan: 17.2 cm/sec PA pr(Accel): 34.5 mmHg E/E' lat: 5.1 E/e' average: 7.7 MV dec time: 0.17 sec SV(LVOT): 47.8 ml Reading Physician:12:34 PM
== END ==
PROVIDERS: PCP Family Medicine; Referring Provider Internal Medicine Cardiovascular Disease; Visit Provider Internal Medicine Cardiovascular Disease
DX: I08.1 Rheumatic disorders of both mitral and tricuspid valves (principal)
CPT/HCPCS: 93306

== ENCOUNTER → 2020-07-12 11:19 | Outpatient (CLI) | payer OTHER, SELFPAY ==
[2020-07-12] MEDS: COVID-19 VACC #2, MRNA(MOD) 100 MCG/0.5 ML VIAL IM (11:23)
== END ==
PROVIDERS: PCP Family Medicine; Visit Provider Internal Medicine
DX: Z23 Encounter for immunization (principal)
CPT/HCPCS: 0012A; 91301

== ENCOUNTER → 2021-01-17 11:55 | Outpatient (CLI) | payer OTHER, SELFPAY ==
--- NOTE | 2021-01-17 | DI.CT.S_ITS ---
PROCEDURE: CT SINUS SCREEN WO CON INDICATIONS: Chronic pansinusitis TECHNIQUE: Noncontrast 3.0 mm axial images acquired from the frontal sinuses to the mid-sella, with coronal and sagittal reformats. For radiation dose reduction, the following was used: automated exposure control, adjustment of mA and/or kV according to patient size. COMPARISON: [facility], CT, SINUS SCREEN WO CONTRAST, 04/14/2016, 10:07. FINDINGS: Maxillary Sinuses: Small left maxillary sinus retention cyst measures 5 mm. The maxillary sinuses are otherwise clear without significant mucosal thickening or air-fluid levels. Expansion of left ethmoid bulla by retention cyst results in obstruction of the left ostiomeatal unit. Right OMU clear. No significant Manuel ethmoid air cells present along the inferior medial orbital reese. Sphenoid Sinuses: The sphenoethmoidal recesses are patent and unobstructed. The sphenoid sinuses are clear. Sphenoid pneumatization pattern is sellar, extending posteriorly beyond the tuberculum sella. No [place] or sphenoethmoidal air cells present. The optic nerve is well covered. Frontal Sinuses: The frontal recesses are both patent. The frontal sinuses are clear. Ethmoid Sinuses: 1.4 cm retention cyst noted in the left ethmoid bulla. The ethmoid air cells are otherwise clear without significant mucosal thickening or air-fluid levels. The fovea ethmoidalis and cribriform plate are unremarkable. The lamina papyracea are both structurally intact. Lateral lamella are symmetric. Nasal Cavity and Septum: Nasal turbinates unremarkable without pneumatization. Cartilaginous and osseous components of the nasal septum intact and midline without perforation. Skull Base: The anterior cranial fossa and pituitary sella are unremarkable. No evidence of bony dehiscence. Both osseous orbits and contents are within normal limits. Moderate calcified atherosclerotic plaque noted involving the cavernous portions of both internal carotid arteries. IMPRESSION: 1. Stable CT paranasal sinuses. 2. Retention cyst in the left ethmoid bulla results in obstruction of the left ostiomeatal unit, similar prior exam. No maxillary sinus mucosal thickening or debris. Approved by: Kuldip Rivers M.D. on 01/17/2021 at 13:58
== END ==
PROVIDERS: PCP Family Medicine; Referring Provider Otolaryngology; Visit Provider Otolaryngology
DX: J32.4 Chronic pansinusitis (principal); J34.1 Cyst and mucocele of nose and nasal sinus
CPT/HCPCS: 70486

== ENCOUNTER 2021-09-04 10:36 | Emergency (ER) | payer OTHER, SELFPAY ==
[2021-09-04] VITALS (7 sets, daily range): BP systolic 119–185; BP diastolic 75–82; PULSE 62–73; RESP 15–24; TEMP 36.8; O2SAT 95–97; BMI 32.4
--- NOTE | 2021-09-04 10:42 | DI.RAD.S_ITS ---
PROCEDURE: XR CHEST 2V INDICATIONS: shortness of breath TECHNIQUE: 2 views of the chest were acquired. COMPARISON: [facility], , CHEST 2 VIEW, 09/17/2016, 12:02. FINDINGS: Surgical changes and devices: Midline sternal wires present. Lungs and pleura: Lungs are clear. No pleural effusions or pneumothorax. Mediastinum: Mediastinal contours are normal. Heart size is normal. Bones and chest wall: No suspicious bony abnormalities. Soft tissues appear unremarkable. IMPRESSION: No acute cardiopulmonary findings Approved by: Kuldip Rivers M.D. on 09/04/2021 at 10:38
[2021-09-04 11:42] LABS: INR 1.7 (0.9-1.3); Prothrombin Time 19.7 SECONDS (10.1-12.7)
[2021-09-04 11:45] LABS: Add Manual Diff / Slide Review NO; Basophils Absolute Auto 0 /uL (0-100); Basophils Percent Auto 0.4 % (0-2); Eosinophils Absolute Auto 200 /uL (0-450); Eosinophils Percent Auto 2.6 % (2-4); Hematocrit 35.7 % (36-46); Hemoglobin 11.8 g/dL (12.0-16.0); Lymphocytes Absolute Auto 1300 /uL (1100-4500); Lymphocytes Percent Auto 19.9 % (25-40); Mean Corpuscular HGB Conc 33.2 % (30-36); Mean Corpuscular Volume 81.5 fL (80-100); Monocytes Absolute Auto 300 /uL (0-900); Monocytes Percent Auto 5.1 % (3-14); Neutrophils Absolute Auto 4600 /uL (1500-7000); Platelet Count 279 X10^3/uL (150-400); Red Blood Cell Count 4.38 X10^6/uL (4.0-5.2); Red Cell Distribution Width 14.6 % (11.6-14.8); White Blood Cell Count 6.4 X10^3/uL (4.5-11.0)
[2021-09-04 11:48] LABS: Alanine Aminotransferase 12 IU/L (<35); Albumin 4.3 g/dL (3.5-5.0); Albumin Globulin Ratio 1.3 (1.0-2.8); Alkaline Phosphatase 78 U/L (38-126); Aspartate Aminotransferase 22 IU/L (14-36); BUN Creatinine Ratio 13.3 (6-22); Bilirubin Total 0.9 mg/dL (0.2-1.3); Blood Urea Nitrogen 10 mg/dL (7-17); Calcium 8.8 mg/dL (8.4-10.2); Carbon Dioxide 27 mmol/L (22-32); Chloride 107 mmol/L (98-107); Estimated Glomerular Filt Rate > 60 mL/min (>60); Globulin 3.4 g/dL (1.7-4.1); Glucose 201 mg/dL (80-110); HEMOLYSIS < 15 (0-50); Potassium 3.6 mmol/L (3.4-5.1); Sodium 143 mmol/L (137-145); Total Protein 7.7 g/dL (6.3-8.2)
[2021-09-04 11:50] LABS: Lactate (Lactic Acid) 1.1 mmol/L (0.7-2.1)
[2021-09-04 11:59] LABS: NT-proBNP (BNP-Adult 18+) 1390 pg/mL (<125)
--- NOTE | 2021-09-04 13:48 | ED_ITS ---
HPI - URI/Sore Throat General Chief Complaint: Upper Respiratory Symptoms Stated Complaint: cough twelve days sent by Dr Kitchen Time Seen by Provider: 09/04/21 13:24 Source: patient Mode of arrival: Wheelchair History of Present Illness HPI Narrative: The patient has a history of asthma. She uses albuterol as needed. She developed a head cold about 12 days ago with sinus pressure, sinus drainage, and cough. Cough was initially productive of brown and green phlegm, nail bright green phlegm. She has no headache or sinus pressure to small. She has no sore throat. She denies fever chills. Cough is a momentary ceased. She denies dyspnea. She is out of of ureteral. She was seen earlier today in cardiology clinic, and sent over due to her spasmodic cough. The real estate services coordinator described her as having decreased breath sounds in the bases. She has no history of CHF, she has no orthopnea or lower extremity edema with the symptoms. She has a history of ASD repair, mitral regurgitation and AFib. Related Data Home Medications Medication Instructions Recorded Confirmed aspirin 81 mg tablet,delayed 81 mg PO DAILY #0 03/03/11 06/26/20 release Glucose: Home Monitoring Kit 1 kit DIRECTED 11/04/17 06/26/20 Nebulizer: Home Unit 1 pkg DIRECTED 11/04/17 06/26/20 Spacer: Inhaler Spacer Device 1 pac DIRECTED 11/04/17 06/26/20 diltiazem HCl 120 mg 1 cap PO BID 11/04/17 06/26/20 capsule,extended release 24 hr, controlled (DILT-XR) ipratropium bromide 0.02 % 2.5 ml INH BID PRN 11/04/17 06/26/20 solution for inhalation atorvastatin 40 mg tablet 40 mg PO DAILY 04/20/19 06/26/20 furosemide 20 mg tablet (Lasix) 20 mg PO DAILY 04/20/19 06/26/20 lisinopril 20 mg tablet 20 mg PO DAILY 04/20/19 06/26/20 rivaroxaban 20 mg tablet (Xarelto) 20 mg PO DAILY 04/20/19 06/26/20 Previous Rx's Medication Instructions Recorded nitroglycerin 0.4 mg sublingual 0.4 mg SUBLINGUAL PRN #30 tab 07/20/16 tablet (Nitrostat) levalbuterol HCl 0.63 mg/3 mL 0.63 mg (3 mL) INH Q4HP PRN #2 box 09/18/16 solution for nebulization (Xopenex) levalbuterol tartrate 45 2 puff INH Q4HP PRN #15 gm 03/31/17 mcg/actuation aerosol inhaler (Xopenex HFA) glucagon (human recombinant) 1 mg 1 mg IM ONCE #1 each 11/24/18 solution for injection (Glucagon Emergency Kit) potassium chloride 10 mEq 10 meq PO DAILY #90 tab 04/10/20 tablet,extended release handi cap placard #1 ea 06/26/20 beclomethasone dipropionate 80 1 inh INHALATION BID #10.6 gram 07/19/20 mcg/actuation HFA breath activated aerosol (Qvar RediHaler) ciclesonide 80 mcg/actuation 1 puff INHALATION BID #6.1 g 07/24/20 aerosol inhaler (Alvesco) sertraline 100 mg tablet See Rx Instructions .ROUTE 08/11/21 .COMPLEX #60 tab omeprazole 20 mg capsule,delayed See Rx Instructions .ROUTE 08/22/21 release .COMPLEX #30 cap albuterol sulfate 90 mcg/actuation 2 inh INHALATION Q4-6H PRN #8.5 g 09/04/21 aerosol inhaler Allergies Allergy/AdvReac Type Severity Reaction Status Date / Time amoxicillin [AMOXICILLIN] Allergy Mild GI Verified 09/04/21 10:40 erythromycin base Allergy Mild N/V Verified 09/04/21 10:40 [ERYTHROMYCIN BASE] lanolin [LANOLIN] Allergy Mild Roof of Verified 09/04/21 10:40 mouth tastes greasy Review of Systems Constitutional Constitutional: Reports body ache(s), Denies chills, Reports fatigue, Denies fever(s) and Denies headache(s) Eyes Eyes: Denies blurry vision, Denies change in vision, Denies eye discharge and Denies itchy eyes ENT Ears, Nose, Mouth, and Throat: Denies vertigo, Denies dizziness, Denies otalgia, Denies headache(s), Denies lip swelling, Reports nasal congestion, Reports sinus pain, Reports sinus pressure and Denies sore throat Cardiovascular Cardiovascular: Denies chest pain, Denies syncope, Denies rapid heart rate, Denies pedal edema, Denies leg edema, Reports dyspnea and Denies dyspnea on exertion Respiratory Respiratory: Reports cough, Denies pain with cough, Reports dyspnea, Denies dyspnea on exertion and Reports wheezing Gastrointestinal Gastrointestinal: Denies abdominal pain and Denies nausea Musculoskeletal Musculoskeletal: Denies arthralgias and Denies back pain Integumentary/Breasts Skin/Breast: Denies lesions and Denies rash Neurologic Neurologic: Denies confusion, Denies vertigo, Denies dizziness, Denies syncope and Denies headache(s) Psychiatric Psychiatric: Denies anxiety, Denies confusion and Denies depression Endocrine Endocrine: Reports fatigue Hematologic/Lymphatic On Anticoagulants: Yes Allergic/Immunologic Allergic/Immunologic: Denies urticaria, Denies itchy eyes, Denies lip swelling and Reports wheezing Patient History Medical History Atrial fibrillation CAD (coronary artery disease) Cervicalgia Diabetes mellitus Hematuria Hyperlipidemia Hypertension Mitral valvular regurgitation Nephrolithiasis Right knee dislocation Right trigger finger Shoulder pain, bilateral Tricuspid valve regurgitation Surgical History History of carpal tunnel repair (~2013) History of carpal tunnel repair (~1998) History of repair of atrial septal defect Status post arthroscopy (03/16/13) Status post cardiac catheterization (~2011) Status post excision of lipoma (~07/17/08) Family History Father CAD (coronary artery disease) CVA (cerebral infarction) Hypertension Mother Abdominal aortic aneurysm without rupture Social History Smoking Status: Never smoker Smoking Status: Never smoker alcohol intake frequency: holidays/special occasions only Substance Use Type: does not use Exam Initial Vital Signs Initial Vital Signs: Vital Signs Temperature 98.3 F 09/04/21 10:40 Pulse Rate 73 09/04/21 10:40 Respiratory Rate 16 09/04/21 10:40 Blood Pressure 119/75 09/04/21 10:40 Pulse Oximetry 97 09/04/21 10:40 Const General: cooperative, healthy appearing, comfortable, well developed and well groomed [facility] Head: normocephalic and atraumatic Face and sinus: normal facial exam and sinuses nontender Mouth: oral mucosae normal Throat: posterior oropharynx normal Eyes General: appearance normal, both eyes and all related structures Pupils: PERRL EOM: EOM intact bilaterally Neck Neck: normal visual inspection and No JVD Chest Chest: normal inspection of the chest Resp Other: Diffuse wheezes to the mid lobes and lower lobes. No rales or rhonchi. Cardio Palpation: normal PMI Rate: regular rate Rhythm: regular rhythm Heart Sounds: S1 normal, S2 normal, no click and no murmurs GI Inspection: normal to inspection and abdominal wall ecchymosis Palpation: soft and No mass Auscultation: normal bowel sounds Back/Spine/Pelvis Back: No back tenderness Skin General: no rashes or lesions noted Neuro General: patient alert, patient awake, patient oriented x3, no meningeal signs and no focal motor deficits Extrem General: normal to inspection, full ROM, no pedal edema and no calf tenderness Psych Mental Status: mental status grossly normal Course Course Course Narrative: The patient had a URI, seemingly stimulating an asthma exacerbation. She is out of albuterol at home. There is no evidence of pneumonia, CHF, other obvious reason for an dyspnea. She is currently in O2 sats in the upper 90s with little cough. Her albuterol will be renewed. She can return the ER if symptoms exacerbate. She is given DuoNeb with subjective improvement. Peak flow was 350 before and after the treatment. Orders Ordered: ED Orders 09/04/21 10:42 XR chest 2V Stat EKG-12 Lead Stat Measure peak expiratory flow ONCE RT Consult Eval and Treat Now 09/04/21 10:50 Complete Blood Count AUTO DIFF Stat Comprehensive Metabolic Panel Stat Lactate (Lactic Acid) Stat NT-proBNP (BNP-Adult 18+) Stat Prothrombin Time INR Stat Vital Signs Vital signs: Vital Signs - 8 hr 09/04/21 10:40 Temperature 98.3 F Pulse Rate 73 Respiratory Rate 16 Blood Pressure 119/75 Pulse Oximetry 97 MDM - URI/Sore Throat Lab Data Result diagrams: 09/04/21 10:50 09/04/21 10:50 Labs: Lab Results 09/04/21 09/04/21 09/04/21 Range/Units 10:50 10:50 10:50 WBC 6.4 (4.5-11.0) X10^3/uL RBC 4.38 (4.0-5.2) X10^6/uL Hgb 11.8 L (12.0-16.0) g/dL Hct 35.7 L (36-46) % MCV 81.5 (80-100) fL MCH 27.0 (26-34) PG MCHC 33.2 (30-36) % RDW 14.6 (11.6-14.8) % Plt Count 279 (150-400) X10^3/uL Neut % (Auto) 72.0 (50-75) % Lymph % (Auto) 19.9 L (25-40) % [place] % (Auto) 5.1 (3-14) % Eos % (Auto) 2.6 (2-4) % Baso % (Auto) 0.4 (0-2) % Neut # (Auto) 4600 (9124-6802) /uL Lymph # (Auto) 1300 (5913-2197) /uL [place] # (Auto) 300 (0-900) /uL Eos # (Auto) 200 (0-450) /uL Baso # (Auto) 0 (0-100) /uL PT 19.7 H (10.1-12.7) SECONDS INR 1.7 H (0.9-1.3) Sodium 143 (137-145) mmol/L Potassium 3.6 (3.4-5.1) mmol/L Chloride 107 (98-107) mmol/L Carbon Dioxide 27 (22-32) mmol/L BUN 10 (7-17) mg/dL Creatinine 0.75 (0.52-1.04) mg/dL Estimated GFR > 60 (>60) mL/min BUN/Creatinine Ratio 13.3 (6-22) Glucose 201 H (80-110) mg/dL Lactate (0.7-2.1) mmol/L Calcium 8.8 (8.4-10.2) mg/dL Total Bilirubin 0.9 (0.2-1.3) mg/dL AST 22 (14-36) IU/L ALT 12 (<35) IU/L Alkaline Phosphatase 78 (38-126) U/L NT-Pro-B Natriuret Pep 1390 H (<125) pg/mL Total Protein 7.7 (6.3-8.2) g/dL Albumin 4.3 (3.5-5.0) g/dL Globulin 3.4 (1.7-4.1) g/dL Albumin/Globulin Ratio 1.3 (1.0-2.8) 09/04/ Range/Units 10:50 WBC (4.5-11.0) X10^3/uL RBC (4.0-5.2) X10^6/uL Hgb (12.0-16.0) g/dL Hct (36-46) % MCV (80-100) fL MCH (26-34) PG MCHC (30-36) % RDW (11.6-14.8) % Plt Count (150-400) X10^3/uL Neut % (Auto) (50-75) % Lymph % (Auto) (25-40) % [place] % (Auto) (3-14) % Eos % (Auto) (2-4) % Baso % (Auto) (0-2) % Neut # (Auto) (0863-2328) /uL Lymph # (Auto) (9142-1113) /uL [place] # (Auto) (0-900) /uL Eos # (Auto) (0-450) /uL Baso # (Auto) (0-100) /uL PT (10.1-12.7) SECONDS INR (0.9-1.3) Sodium (137-145) mmol/L Potassium (3.4-5.1) mmol/L Chloride (98-107) mmol/L Carbon Dioxide (22-32) mmol/L BUN (7-17) mg/dL Creatinine (0.52-1.04) mg/dL Estimated GFR (>60) mL/min BUN/Creatinine Ratio (6-22) Glucose (80-110) mg/dL Lactate 1.1 (0.7-2.1) mmol/L Calcium (8.4-10.2) mg/dL Total Bilirubin (0.2-1.3) mg/dL AST (14-36) IU/L ALT (<35) IU/L Alkaline Phosphatase (38-126) U/L NT-Pro-B Natriuret Pep (<125) pg/mL Total Protein (6.3-8.2) g/dL Albumin (3.5-5.0) g/dL Globulin (1.7-4.1) g/dL Albumin/Globulin Ratio (1.0-2.8) Imaging Data Chest x-ray: Radiologist's Impression: No acute cardiopulmonary disease. ECG Data Attestation: I personally reviewed and interpreted this ECG as follows: (AFib rate 65 beats per minute. No significant ST T wave changes.) Discharge Plan Departure Patient Disposition: Home Clinical Impression: Asthma exacerbation, URI (upper respiratory infection) Instructions: Asthma -- Adult Activity Restrictions/Additional Instructions: Your heart rate is controlled, there is no evidence of congestive heart failure or pneumonia. You have an asthma exacerbation, been initiated by the upper respiratory infection you suffer the last several days. I will refill your albuterol, take 2 puffs every 3-4 hours as needed. Return here if worse. Prescriptions: New albuterol sulfate 90 mcg/actuation HFA aerosol inhaler 2 inh inhalation Q4-6H PRN (Reason: shortness of breath or wheezing) Qty: 8.5 1RF No Action aspirin 81 mg Tablet,Delayed Release (Dr/Ec) 81 mg PO DAILY Qty: 0 0RF nitroglycerin [Nitrostat] 0.4 MG tablet, sublingual 0.4 mg Sublingual PRN Qty: 30 0RF levalbuterol HCl [Xopenex] 0.63 MG/3 ML solution for nebulization 0.63 mg INH Q4HP PRNQty: 2 2RF levalbuterol tartrate [Xopenex HFA] 45 MCG/INH HFA aerosol inhaler 2 puff INH Q4HP PRNQty: 15 0RF potassium chloride 10 mEq tablet extended release 10 meq PO DAILY Qty: 90 0RF (DME) handi cap placard See Rx Instructions .Route .MEDSUPPLY Qty: 1 0RF Rx Instructions: As directed Qvar RediHaler 80 mcg/actuation HFA aerosol breath activated 1 inh INHALATION BID Qty: 10.6 3RF Alvesco 80 mcg/actuation HFA aerosol inhaler 1 puff inhalation BID Qty: 6.1 3RF sertraline 100 mg tablet See Rx Instructions .ROUTE .COMPLEX Qty: 60 0RF Dose Instruction: TAKE 2 TABLETS BY MOUTH BEDTIME Rx Instructions: TAKE 2 TABLETS BY MOUTH BEDTIME omeprazole 20 mg capsule,delayed release(DR/EC) See Rx Instructions .ROUTE .COMPLEX Qty: 30 0RF Dose Instruction: TAKE 1 CAPSULE BY MOUTH DAILY Rx Instructions: TAKE 1 CAPSULE BY MOUTH DAILY Glucagon Emergency Kit (human) 1 mg recon soln 1 mg IM ONCE Qty: 1 0RF ipratropium bromide 0.2 MG/1 ML solution 2.5 ml INH BID PRN (Reason: Shortness Of Breath) 0RF Glucose: Home Monitoring Kit 1 kit DIRECTED 0RF Spacer: Inhaler Spacer Device 1 pac DIRECTED 0RF Nebulizer: Home Unit 1 pkg DIRECTED 0RF diltiazem HCl [DILT-XR] 120 mg Capsule,Ext.Rel 24h Degradable 1 cap PO BID 0RF atorvastatin 40 mg Tablet 40 mg PO DAILY 0RF lisinopril 20 mg Tablet 20 mg PO DAILY 0RF Xarelto 20 mg Tablet 20 mg PO DAILY 0RF furosemide [Lasix] 20 MG tablet 20 mg PO DAILY 0RF Referrals: Shelia Godinez DO [Primary Care Provider] -
[2021-09-04] MEDS: ALBUTEROL/IPRATROPIUM 3 ML AMPUL INH (14:19)
[2021-09-04 14:48] LABS: COVID19 -Nasal RAPID Negative (Negative)
== END 2021-09-04 14:58 | disposition home or self-care (01) ==
PROVIDERS: Emergency Provider Emergency Medicine; PCP Family Medicine; Referring Provider Internal Medicine Cardiovascular Disease
DX: J45.901 Unspecified asthma with (acute) exacerbation (principal); J06.9 Acute upper respiratory infection, unspecified; Z20.822 Contact with and (suspected) exposure to COVID-19
CPT/HCPCS: 36415; 71046; 80053; 83605; 83880; 85025; 85610; 87635; 93005; 94150; 94640; 99284; C9803

== ENCOUNTER → 2022-02-11 08:10 | Outpatient (CLI) | payer OTHER, SELFPAY ==
--- NOTE | 2022-02-11 | DI.ECHO.S_ITS ---
[facility] +---------+ : : [address] : [place] [address] : : : : [id number] : : : : Phone: [phone]---------+ Echocardiogram Report + + :Name: KASSY TORRES Study Date: 02/11/2022 Height: 64.5 in: :[facility] ReadingLocation: Weight: 185 lb : : Gender: Female BSA: 1.9 m2 : :: 1945 Age: 76 yrs BP: 140/66 mmHg: :Reason For Study: DIASTOLIC HEART FAILURE : :Ordering Physician: NIEVES, : :FRIDA Performed By: Becca Salu : :Referring: FRIDA PICKETT : + + Interpretation Summary The left ventricle is normal in size. The ejection fraction is estimated to be 55-60%. There has been no significant change LV EF since the previous exam. The right ventricle is normal in size and function. There is mild to moderate mitral regurgitation. Compared to the prior echo study, there has been no change in the severity of mitral regurgitation. There is moderate tricuspid regurgitation. Previously mild to moderate TR. The right ventricular systolic pressure is estimated to be at least 38 mmHg based on an estimated right atrial pressure of 8 mm Hg. Previously 27 mmHg with right atrial pressure about 3 mmHg. Compared to the prior echo exam, there has been an increase in the severity of pulmonary hypertension. Procedure: A two-dimensional transthoracic echocardiogram with color flow and Doppler was performed. The study quality was technically adequate. Comparison is made with the echocardiogram of 06/18/2020. The patient was in atrial fibrillation with heart rates between 50-64 bpm during the exam. Left Ventricle: The left ventricle is normal in size. Proximal septal thickening is noted. There is no echo evidence for significant left ventricular outflow tract obstruction. There is no thrombus. The ejection fraction is estimated to be 55-60%. There has been no significant change since the previous exam. Septal motion is consistent with conduction abnormality. Diastolic function could not be accurately assessed due to atrial fibrillation. Right Ventricle: The right ventricle is normal in size and function. Atria: The left atrium is severely dilated. The left atrium has remained unchanged in size since the prior echo exam. The right atrium is moderately dilated. There has been no significant change since the previous study. There is no Doppler evidence for an interatrial shunt. Mitral Valve: There is mild mitral annular calcification. The mitral valve leaflets appear mildly thickened, but open well. There is mild to moderate mitral regurgitation. Compared to the prior echo study, there has been no change in the severity of mitral regurgitation. Aortic Valve: The aortic valve is trileaflet. The aortic valve opens well. There is no aortic valve stenosis. No aortic regurgitation is present. Tricuspid Valve: The tricuspid valve is normal in structure and function. There is moderate tricuspid regurgitation. The right ventricular systolic pressure is estimated to be at least 38 mmHg based on an estimated right atrial pressure of 8 mm Hg. Compared to the prior echo exam, there has been an increase in the severity of pulmonary hypertension. Pulmonic Valve: The pulmonic valve is not well visualized. There is no pulmonic valvular regurgitation. Great Vessels: The aortic root is normal size. The dimensions of the ascending aorta are normal. The IVC is dilated (diameter is greater than 2.1 cm) yet it collapses greater than 50% with a sniff. This suggests a right atrial pressure of 8 mm Hg. Pericardium/ Pleura There is no pericardial effusion. There is no pleural effusion. MMode/2D Measurements & Calculations LVIDd: 4.5 cm LVOT diam: 2.4 cm LVIDs: 3.1 cm Ao root diam: 3.1 cm FS: 31.6 % asc Aorta Diam: 2.8 cm IVSd: 0.97 cm Ao Arch Diam (Prox Trans): 2.5 cm LVPWd: 1.2 cm LV gil. diameter/BSA (cm/m^2): 2.4 LV sys. diameter/BSA (cm/m^2): 1.6 LA A2 area: 46.1 cm2 RA long axis: 5.9 cm LA A4 area: 30.6 cm2 RA area: 23.5 cm2 LA length (vol): 7.1 cm RA vol: 79.6 ml LA vol: 168.2 ml RA : 41.8 ml/m2 LA vol index: 88.4 ml/m2 IVC diam: 2.2 cm RVD1 (basal): 3.0 cm RVD2 (mid): 2.1 cm TAPSE: 1.8 cm Doppler Measurements & Calculations Ao V2 max: 135.1 cm/sec LVOT Max Nayan: 84.9 cm/sec Ao V2 mean: 83.9 cm/sec LV V1 max P.9 mmHg Ao max P.3 mmHg LV V1 VTI: 18.3 cm Ao mean P.3 mmHg GORGE(I,D): 3.1 cm2 Ao V2 VTI: 27.5 cm GORGE(V,D): 3.0 cm2 sev ratio: 0.67 GORGE indexed to BSA (cm^2/m^2): 1.7 MV E max nayan: 112.0 cm/sec TR max nayan: 275.1 cm/sec MV A max nayan: 39.4 cm/sec TR max P.3 mmHg MV E/A: 2.8 PA V2 max: 95.0 cm/sec Med Peak E' Nayan: 9.9 cm/sec PA V2 mean: 64.1 cm/sec E/E' med: 11.3 PA mean P.9 mmHg Lat Peak E' Nayan: 16.1 cm/sec PA pr(Accel): 55.0 mmHg E/E' lat: 7.0 E/e' average: 9.1 MV dec time: 0.22 sec SV(LVOT): 86.4 ml Reading Physician:12:59 PM
[2022-02-11 09:41] LABS: COVID19 -Nasal RAPID Negative (Negative)
--- NOTE | 2022-02-11 17:59 | DI.NM.S_ITS ---
DATE OF SERVICE: 02/11/2022 PROCEDURE PERFORMED: Pharmacological perfusion study. INDICATION: Shortness of breath, history of LAD stent, chronic AFib, ASD repair in the past, hypertension, diabetes mellitus, hyperlipidemia. RADIOPHARMACEUTICAL: 25.3 millicurie technetium-99m Myoview IV was injected at stress and 12.9 millicurie technetium-99m Myoview IV was injected at rest. CARDIAC STRESS: The patient underwent IV Lexiscan perfusion study under the supervision of an attending staff, as per standard protocol. The patient remained hemodynamically stable. Blood pressure 132/84 mmHg at rest. Baseline rhythm AFib with controlled ventricular rate. Nonspecific ST changes. During stress, no convincing ischemic changes seen. The patient remained in AFib. No ventricular tachycardia. RAW DATA: Breast shadow seen. GATED STUDY: Resting LV ejection fraction 68 and stress LV ejection fraction is 72 percent without any obvious wall motion abnormalities. Resting end-diastolic volume 133 mL. TID ratio 1.14, which is within normal limits. Lung/heart ratio 0.51, which is abnormal, suggestive of elevated left ventricular filling pressure. MYOCARDIAL PERFUSION SCAN: Stress supine, resting supine and stress prone images were compared to each other. The stress supine and resting supine images revealed moderate-size, moderate to severely decreased perfusion of anterior wall and anteroapex, which got significantly improved during prone images. However, prone images remaining have mildly decreased perfusion of basal anterior wall. No obvious reversible ischemia. CONCLUSION: 1. No obvious reversible ischemia. 2. The anterior wall defect ,which was seen during stress supine and resting supine images, got significantly improved during stress prone images. Large breast shadow seen is during raw images. No wall motion abnormalities. Left ventricular function is preserved. Most likely, we are dealing with breast tissue attenuation artifact. The patient had a perfusion scan in June,, as well as February,, at that time, also, she had similar-type of perfusion defect, which got improved during stress prone images. Hence, we will call this study, likely a normal myocardial perfusion study. Overall, low-risk myocardial perfusion study. Idris Lion - Aishwarya doc#: [id number]/job#: [id number] dd: 02/11/2022 16:59:00 dt: 02/11/2022 17:45:00 DICTATING MD/COPIES TO: Mayra Kitchen MD COPIES MNE: MERT;
== END ==
PROVIDERS: PCP Nurse Practitioner; Referring Provider Internal Medicine Cardiovascular Disease; Visit Provider Internal Medicine Cardiovascular Disease
DX: I08.1 Rheumatic disorders of both mitral and tricuspid valves (principal); I50.30 Unspecified diastolic (congestive) heart failure; I27.20 Pulmonary hypertension, unspecified; I48.20 Chronic atrial fibrillation, unspecified; R06.02 Shortness of breath; I10 Essential (primary) hypertension; E11.9 Type 2 diabetes mellitus without complications; E78.5 Hyperlipidemia, unspecified; Z95.5 Presence of coronary angioplasty implant and graft; Z20.822 Contact with and (suspected) exposure to COVID-19
CPT/HCPCS: 78452; 87635; 93017; 93306; A9502; J2785

== ENCOUNTER → 2022-06-23 10:07 | Outpatient (CLI) | payer OTHER, SELFPAY ==
[2022-06-23 10:54] LABS: Hematocrit 40.7 % (36-46); Hemoglobin 13.2 g/dL (12.0-16.0); Mean Corpuscular HGB Conc 32.6 % (30-36); Mean Corpuscular Hemoglobin 26.7 PG (26-34); Mean Corpuscular Volume 82.1 fL (80-100); Platelet Count 236 X10^3/uL (150-400); Red Blood Cell Count 4.96 X10^6/uL (4.0-5.2); Red Cell Distribution Width 15.2 % (11.6-14.8); White Blood Cell Count 7.3 X10^3/uL (4.5-11.0)
[2022-06-23 11:14] LABS: Alanine Aminotransferase 15 IU/L (<35); Albumin 4.4 g/dL (3.5-5.0); Albumin Globulin Ratio 1.4 (1.0-2.8); Alkaline Phosphatase 95 U/L (38-126); Aspartate Aminotransferase 19 IU/L (14-36); BUN Creatinine Ratio 17.4 (6-22); Bilirubin Total 1.4 mg/dL (0.2-1.3); Blood Urea Nitrogen 15 mg/dL (7-17); Carbon Dioxide 30 mmol/L (22-32); Chloride 100 mmol/L (98-107); Cholesterol 141 mg/dL (140-199); Estimated Glomerular Filt Rate > 60 mL/min (>60); Globulin 3.2 g/dL (1.7-4.1); Glucose 214 mg/dL (80-110); HDL Cholesterol 37 mg/dL (40-60); HEMOLYSIS < 15 (0-50); LDL Cholesterol Calculated 79 mg/dL (<100); Potassium 3.7 mmol/L (3.4-5.1); Sodium 142 mmol/L (137-145); Total Protein 7.6 g/dL (6.3-8.2); Triglycerides 123 mg/dL (35-150)
[2022-06-23 11:22] LABS: Creatinine Urine Random 76.4 mg/dL
[2022-06-23 11:27] LABS: Microalbumi Creatinin Ratio Ur 74.6 ug/mg CR (<30); Microalbumin Urine Random 5.7 mg/dL (0-1.6)
[2022-06-23 11:31] LABS: Vitamin D 25 Hydroxy (D3) 19.8 ng/mL (30.0-100.0)
[2022-06-23 11:49] LABS: TSH w/ Reflex to FT4 4.29 uIU/mL (0.47-4.68)
== END ==
PROVIDERS: PCP Family Medicine; Referring Provider Family Medicine; Visit Provider Family Medicine
DX: E03.9 Hypothyroidism, unspecified (principal); E11.9 Type 2 diabetes mellitus without complications; E78.5 Hyperlipidemia, unspecified; I10 Essential (primary) hypertension; I48.91 Unspecified atrial fibrillation; N18.31 Chronic kidney disease, stage 3a
CPT/HCPCS: 36415; 80053; 80061; 82043; 82306; 82570; 83036; 84443; 85027

== ENCOUNTER → 2022-07-14 13:40 | Outpatient (CLI) | payer OTHER, SELFPAY ==
--- NOTE | 2022-07-14 17:32 | DIAB.MNT ---
Initial Diabetes Medical Nutrition Therapy Assessment Name: Idris Lion Date: 07/14/22 Time: 2-330p Dx: Type II Diabetes Provider: Kourtney Idris presents for initial DM visit. States she is unsure how long she has had DM. Denies FH of DM. EMR HgA1c hx indicates elevated HgA1c at least since 2016. Reports years ago being hospitalized with pneumonia and put on prednisone which increased BG resulting in the need for insulin while admitted. Then discharged without meds but found to have T2DM at PCP visit that year.? She reports h/o frequent low BS (40-65) resulting in shakes and confusion. Not currently on any glucose lowering meds. Keeps raisins?and oranges nearby for this reason.? Used to take Metformin but reports diarrhea as side effect. Admits that she was not taking with food at that time. ? From self education, pt read that she should consume ~45 g CHO/meal but aims for 23-30 g/meal. Endorses she would previously snack on candy until 2 moths?ago. Has since cut out most candy. Enjoys celery, spinach, and?salads. Does not like most vegetables or beans.? Diet Recall: Wake (9 am) B: (10 am) 1 hard boiled egg, persian muffin with 2 Tbsp strawberry cream cheese, 1-2 cups coffee with 2 Tbsp creamer and 1 tsp stevia, 20 oz diet [place]. L: (3 pm) 1-2 slices ham, ~ 22 tortilla chips (18 g CHO) or persian muffin, celery with 1 Tbsp ranch. D: (5:30-6 pm, family dinner) 3-4 oz chicken, 1/2 cup whole wheat pasta, 1 cup salag with 2 Tbsp ranch.? S: (9 pm - 2 am) crystal light blended with ice, tostada chips OR <2 cup bagged popcorn OR celery OR fruit (apple or orange). Fluid: 3-4x 20 oz water (60-80 oz), 1-2 cups coffee, 20 oz diet [place].? Anthropometrics: Ht: 64 Wt: 176 lbs/80 kg (pt reported) Physical Activity: No intentional program. Likes gardening and walking. Will discuss further next visit. Self-Monitoring Blood Glucose: : Checks before and 20 minutes after meals. Difficulty replacing lancet in current lancing device. BG are ranging from 185-299mg/dl with most in the 200s. This RD thinks it is possible that her 7% HgA1c may be a reflection of her elevations and lows averaging out. She is not fasting a full 8 hours overnight before checking. Will evaluate this after diet changes discussed. Date Pre Post Pre Post Pre Post notes 07/07 229 243 218 183 07/08 273 221 07/09 207 185 07/10 192 07/11 200 07/12 204 245 07/13 244 170 07/14 240 Diabetes Medications: None Pertinent Labs: HgA1c:?(06/23/22) A1c 7% Past Medical History: (Last Reviewed 09/04/21 @ 14:03 by Christopher Barros MD) Atrial fibrillation CAD (coronary artery disease) 07/2011 Drug coated stent to LAD Cervicalgia Diabetes mellitus Hematuria When taking Coumadin Hyperlipidemia Hypertension Mitral valvular regurgitation mild-mod Nephrolithiasis Right knee dislocation Right trigger finger Shoulder pain, bilateral Tricuspid valve regurgitation mild-mod Nutrition Rx: Carbohydrates: Meal:30g Snack:15-30g Nutrition Diagnosis: - Altered nutrition related laboratory values (A1c) r/t?endocrine disfunction?aeb A1c 7%, A1c > 6.5% since 2016, diet recall suggesting high sugar intake prior to T2DM diagnosis - Food and Nutrition related knowledge deficit r/t no previous education on Rule of 15 for lows or MNT for Dm care aeb pt report Intervention: This participant was very receptive. Provided appropriate educational handouts. Discussed the following topics: Completed intake assessment. Discussed barriers to care. Pathophysiology of T2DM Self monitoring recs: FBG and 1-2 hours pc with ADA BG goals SMBG supplies that are easier for her to use Meal timing, pairing macronutrients and spreading out carbohydrates for better blood glucose management Recommended servings for carbohydrates at meals and snacks Sugar subs in moderation Reviewed Rule of 15 for lows and severe lows Potential for medication management given hyperglycemia Created SMART goals for patient self-care and success. Goals: Buy one touch lancing device?+ lancets Stop snacking by midnight Pair CHO with protein Practice Rule 15 for BS lows Aim for 30 g CHO per meal Try to eat every 3-5 hours Follow-up: NHAN SEPULVEDA follow-up in 3-[address] message provider about BG trends. Shawnee Bajwa RDN, [facility] Certified Diabetes Care and Diabetic Educator P: [phone] Thank you for this referral
== END ==
PROVIDERS: Absent Provider Family Medicine; Family Provider Family Medicine; PCP Family Medicine; Referring Provider Family Medicine; Visit Provider Family Medicine
DX: E11.29 Type 2 diabetes mellitus with other diabetic kidney complication (principal); Z71.3 Dietary counseling and surveillance; R80.9 Proteinuria, unspecified; N18.31 Chronic kidney disease, stage 3a; I10 Essential (primary) hypertension; E78.5 Hyperlipidemia, unspecified; E66.9 Obesity, unspecified
CPT/HCPCS: 97802

== ENCOUNTER → 2022-11-16 10:42 | Outpatient (CLI) | payer OTHER, SELFPAY ==
[2022-11-17 06:22] LABS: x Labcorp Estim. Avg Glu (eAG) 140 mg/dL (.); x Labcorp Hemoglobin A1c 6.5 % (4.8-5.6)
== END ==
PROVIDERS: Family Provider Family Medicine; PCP Family Medicine; Referring Provider Family Medicine; Visit Provider Family Medicine
DX: E11.29 Type 2 diabetes mellitus with other diabetic kidney complication (principal); R80.9 Proteinuria, unspecified
CPT/HCPCS: 36415; 83036

== ENCOUNTER 2023-04-04 08:25 | Emergency (ER) | payer OTHER, SELFPAY ==
[2023-04-04 08:56] VITALS: BP 242/105; PULSE 71; RESP 20; TEMP 36.4; O2SAT 97; BMI 28.6
--- NOTE | 2023-04-04 09:01 | DI.RAD.S_ITS ---
PROCEDURE: XR CHEST 1V INDICATIONS: coughing, SOB TECHNIQUE: One view of the chest was acquired. COMPARISON: [facility], CR, XR CHEST 2V, 09/04/2021, 10:38. FINDINGS: Surgical changes and devices: Cerclage wires are present Lungs and pleura: Mild interstitial and vascular prominence. No concerning consolidation. No pleural effusion or pneumothorax. Mediastinum: Mediastinal contours appear normal. Heart size is enlarged. Bones and chest wall: No suspicious bony lesions. Overlying soft tissues appear unremarkable. IMPRESSION: Cardiomegaly with vascular prominence is concerning for pulmonary edema from cardiac etiologies Dictated by: Gm Grant M.D. on 04/04/2023 at 8:27 Approved by: Gm Grant M.D. on 04/04/2023 at 8:34
--- NOTE | 2023-04-04 09:08 | ED.SOB ---
HPI - SOB/Dyspnea General Chief Complaint: Upper Respiratory Symptoms Stated Complaint: upper resp symptoms, per pt low oxygen Time Seen by Provider: 04/04/23 09:07 Source: patient, RN notes reviewed and old records reviewed Mode of arrival: Ambulatory Limitations: no limitations History of Present Illness HPI Narrative: 78-year-old female with history of COPD, coronary artery disease, atrial fibrillation on Xarelto, prior ASD repair, diabetes type 2, hypertension, dyslipidemia. Patient presents with several days of chills with no fever, chest discomfort and cough particularly at nighttime. Patient states she is felt short of breath particularly when she lays down she states she is had cough with initially yellow and now clear sputum. No hemoptysis. She states no diaphoresis. She is had a lot of nasal congestion, postnasal drip. She states she has pain in her chest but at nighttime. She can not lay flat without coughing a lot. Patient denies any nausea or vomiting. No diarrhea constipation. She states her chest hurts mostly when she is coughing she has paroxysmal fits that occur. She states it does not feel like when she is had pneumonia where she gets wheezy. Patient states she checked her oxygen at home and at nighttime it was low when she would try to sleep. Denies any diarrhea or constipation. No other GI symptoms. No dysuria urgency or frequency. No new swelling of extremities. Patient has had a prior ASD repair, and cardiac stent. Reports allergy to amoxicillin, erythromycin and lanolin. No tobacco, occasional alcohol, no recreational drugs. Dr. Mireya oconnell is her primary care. Related Data Home Medications Medication Instructions Recorded Confirmed aspirin 81 mg tablet,delayed 81 mg PO DAILY ##0 03/03/11 08/12/22 release Glucose: Home Monitoring Kit 1 kit DIRECTED 11/04/17 08/12/22 Nebulizer: Home Unit 1 pkg DIRECTED 11/04/17 08/12/22 Spacer: Inhaler Spacer Device 1 pac DIRECTED 11/04/17 08/12/22 ipratropium bromide 0.02 % 2.5 ml INH BID PRN Shortness Of 11/04/17 08/12/22 solution for inhalation Breath rivaroxaban 20 mg tablet (Xarelto) 20 mg PO DAILY 04/20/19 08/12/22 ascorbic acid (vitamin C) PO 08/12/22 08/12/22 cholecalciferol (vitamin D3) PO 08/12/22 08/12/22 multivitamin 1 tab PO DAILY 08/12/22 08/12/22 Previous Rx's Medication Instructions Recorded nitroglycerin 0.4 mg sublingual 0.4 mg sublingual PRN #30 tabs 07/20/16 tablet (Nitrostat) levalbuterol tartrate 45 2 puff INH Q4HP PRN ##15 03/31/17 mcg/actuation aerosol inhaler (Xopenex HFA) glucagon (human recombinant) 1 mg 1 mg IM ONCE #1 ea 11/24/18 solution for injection (Glucagon Emergency Kit) handi cap placard #1 ea 06/26/20 atorvastatin 40 mg tablet See Rx Instructions .Route 10/24/21 .COMPLEX #90 tabs diltiazem HCl 120 mg See Rx Instructions .Route 10/24/21 capsule,extended release 24 hr, .COMPLEX #180 caps controlled (DILT-XR) furosemide 20 mg tablet See Rx Instructions .Route 10/24/21 .COMPLEX #90 tabs lisinopril 20 mg tablet See Rx Instructions .Route 10/24/21 .COMPLEX #90 tabs potassium chloride 10 mEq See Rx Instructions .Route 10/24/21 capsule,extended release .COMPLEX #90 caps albuterol sulfate 90 mcg/actuation 2 inh inhalation Q4-6H PRN 06/24/22 aerosol inhaler shortness of breath or wheezing #8.5 grams beclomethasone dipropionate 80 1 inh inhalation BID #10.6 grams 06/24/22 mcg/actuation HFA breath activated aerosol (Qvar RediHaler) ciclesonide 80 mcg/actuation 1 puff inhalation BID #6.1 grams 07/03/22 aerosol inhaler (Alvesco) omeprazole 20 mg capsule,delayed See Rx Instructions .Route 10/09/22 release .COMPLEX #90 caps metformin 500 mg tablet,extended 500 mg PO .evening meal #180 tabs 12/03/22 release 24 hr sertraline 100 mg tablet 200 mg (2 x 100 mg) PO ONCE PM 02/11/23 #180 tabs Allergies Allergy/AdvReac Type Severity Reaction Status Date / Time amoxicillin [AMOXICILLIN] Allergy Mild GI Verified 08/12/22 13:39 erythromycin base Allergy Mild N/V Verified 08/12/22 13:39 [ERYTHROMYCIN BASE] lanolin [LANOLIN] Allergy Mild Roof of Verified 08/12/22 13:39 mouth tastes greasy Review of Systems Review of Systems ROS Unobtainable: All systems reviewed & are unremarkable except as noted in HPI and below Patient History Medical History Tricuspid valve regurgitation Mitral valvular regurgitation Nephrolithiasis Cervicalgia Chronic kidney disease (CKD) stage G3a/A1, moderately decreased glomerular filtration rate (GFR) between 45-59 mL/min/1.73 square meter and albuminuria creatinine ratio less than 30 mg/g Hematuria Hypertension Hyperlipidemia CAD (coronary artery disease) Atrial fibrillation Right trigger finger Right knee dislocation Shoulder pain, bilateral Diabetes mellitus Surgical History History of repair of atrial septal defect Status post excision of lipoma (~07/17/08) Status post arthroscopy (03/16/13) Status post cardiac catheterization (~2011) History of carpal tunnel repair (~1998) History of carpal tunnel repair (~2013) Family History Father CAD (coronary artery disease) CVA (cerebral infarction) Hypertension Mother Abdominal aortic aneurysm without rupture Social History Smoking Status: Never smoker Smoking Status: Never smoker alcohol intake frequency: holidays/special occasions only Substance Use Type: does not use Exam Narrative Exam Narrative: GEN: well nourished, well appearing female, alert and oriented x 3, patient appears to be in mild distress. HEENT: Atraumatic, pupils are equal round reactive to light, extraocular movements are intact, nares are clear, there is no conjunctival pallor. Throat is clear without any exudates, erythema, tonsillar enlargement or uvular deviation HEART: Regular rate and rhythm without murmur, clicks, rubs. pulses are equal in upper and lower extremities, no edema bilateral lower extremities. LUNGS:Lungs clear to auscultation, no wheezes, rales, crackles, chest moves symmetrically, no tachypnea or accessory muscle use. Patient's speaks in full sentences. She does have a frequent dry cough ABD:bowel sounds normal, soft, non-tender, no guarding, rebound, rigidity, no masses noted, no hepatosplenomegaly :No CVA tenderness MSCL: Non-tender, no muscle atrophy, muscles strength 5/5 upper and lower extremities, full range of motion, normal gait NEURO:CN 2-12 intact, sensation normal SKIN: No rash, erythema or other skin changes Initial Vital Signs Initial Vital Signs: Vital Signs Temperature 97.6 F 04/04/23 08:56 Pulse Rate 71 04/04/23 08:56 Respiratory Rate 20 04/04/23 08:56 Blood Pressure 242/105 H 04/04/23 08:56 Pulse Oximetry 97 04/04/23 08:56 Oxygen Delivery Method Room Air 04/04/23 08:56 Course Orders Ordered: ED Orders 04/04/23 09:01 XR chest 1V Stat EKG-12 Lead Stat 04/04/23 09:03 Covid-19 + FLU A/B + RSV - PCR Stat 04/04/23 09:17 Complete Blood Count AUTO DIFF Stat Comprehensive Metabolic Panel Stat Lipase Stat NT-proBNP (BNP-Adult 18+) Stat Troponin & CK Cardiac Panel Stat Discontinued Medications Furosemide (Furosemide 40 Mg Tablet) 40 mg PO NOW ONE Stop: 04/04/23 10:36 Last Admin: 04/04/23 11:15 Dose: 40 mg Documented By: ARIELLA Potassium Chloride (Potassium Chloride 20 Meq Tab) 40 meq PO NOW ONE Stop: 04/04/23 10:34 Last Admin: 04/04/23 11:15 Dose: 40 meq Documented By: ARIELLA Vital Signs Vital signs: Vital Signs - 8 hr 04/04/23 08:56 04/04/23 11:13 Temperature 97.6 F Pulse Rate 71 62 Respiratory Rate 20 16 Blood Pressure 242/105 H 204/95 H Pulse Oximetry 97 97 Oxygen Delivery Method Room Air Room Air MDM - SOB/Dyspnea Lab Data 04/04/23 09:17 04/04/23 09:17 Labs: Lab Results 04/04/23 04/04/23 Range/Units 09:03 09:17 WBC 7.7 (4.5-11.0) X10^3/uL RBC 4.30 (4.0-5.2) X10^6/uL Hgb 11.1 L (12.0-16.0) g/dL Hct 33.7 L (36-46) % MCV 78.3 L (80-100) fL MCH 25.8 L (26-34) PG MCHC 33.0 (30-36) % RDW 16.1 H (11.6-14.8) % Plt Count 265 (150-400) X10^3/uL Neut % (Auto) 68.0 (50-75) % Lymph % (Auto) 21.9 L (25-40) % Spencer % (Auto) 6.4 (3-14) % Eos % (Auto) 2.2 (2-4) % Baso % (Auto) 1.5 (0-2) % Neut # (Auto) 5200 (1228-5234) /uL Lymph # (Auto) 1700 (9778-3397) /uL Spencer # (Auto) 500 (0-900) /uL Eos # (Auto) 200 (0-450) /uL Baso # (Auto) 100 (0-100) /uL Sodium 140 (137-145) mmol/L Potassium 2.8 L (3.4-5.1) mmol/L Chloride 102 (98-107) mmol/L Carbon Dioxide 29 (22-32) mmol/L BUN 9 (7-17) mg/dL Creatinine 0.66 (0.52-1.04) mg/dL Estimated GFR > 60 (>60) mL/min BUN/Creatinine Ratio 13.6 (6-22) Glucose 146 H (80-110) mg/dL Calcium 9.2 (8.4-10.2) mg/dL Total Bilirubin 1.6 H (0.2-1.3) mg/dL AST 20 (14-36) IU/L ALT 15 (<35) IU/L Alkaline Phosphatase 75 (38-126) U/L Total Creatine Kinase 76 (30-135) U/L Troponin I 0.012 (0.01-0.034) ng/mL NT-Pro-B Natriuret Pep 4030 H (<450) pg/mL Total Protein 7.5 (6.3-8.2) g/dL Albumin 4.2 (3.5-5.0) g/dL Globulin 3.3 (1.7-4.1) g/dL Albumin/Globulin Ratio 1.3 (1.0-2.8) Lipase 88 (23-300) U/L SARS-CoV-2 (PCR) Negative (Negative) Influenza A (RT-PCR) Flu a negative (NEGATIVE) Influenza B (RT-PCR) Flu b negative (NEGATIVE) RSV (PCR) Negative (Negative) Imaging Data Chest x-ray: Radiologist's Impression: [address] [address] XRay Report Signed Patient: Idris Lion MR#: [id number] : 1945 Acct:[id number] Age/Sex: 78 / F Date of Service: 04/04/23 Loc: ED Accession Number: [id number] Procedure: XR chest 1V Ordering Provider: Judy Blake D.O. PROCEDURE: XR CHEST 1V INDICATIONS: coughing, SOB TECHNIQUE: One view of the chest was acquired. COMPARISON: [facility], , XR CHEST 2V, 09/04/2021, 10:38. FINDINGS: Surgical changes and devices: Cerclage wires are present Lungs and pleura: Mild interstitial and vascular prominence. No concerning consolidation. No pleural effusion or pneumothorax. Mediastinum: Mediastinal contours appear normal. Heart size is enlarged. Bones and chest wall: No suspicious bony lesions. Overlying soft tissues appear unremarkable. IMPRESSION: Cardiomegaly with vascular prominence is concerning for pulmonary edema from cardiac etiologies Dictated by: Gm Grant M.D. on 04/04/2023 at 8:27 Approved by: Gm Grant M.D. on 04/04/2023 at 8:34 ECG Data Attestation: I personally reviewed and interpreted this ECG as follows: Prior ECG tracings: available for review Interpretation: AFib rate of 68 QRS 88 QTC 495. Patient has prior from 09/04/[address] changes patient has sort of nonspecific change both EKGs but appear very similar. Patient does have atrial fibrillation on prior EKGs as well. MDM Narrative Medical decision making narrative: 78-year-old female who has what appears to be upper respiratory congestion and infection but does have a cardiac history she is noted some shortness of breath particularly when lying down she does have some postnasal drip on examination but is quite hypertensive initially upon arrival although quite anxious. She is without any respiratory distress 97% on room air. Plan for cardiac workup with CBC, CMP troponin BNP, chest x-ray EKG does show AFib but rate controlled patient is appropriately anticoagulated. Respiratory panel was also sent. Rest of patient's workup shows pneumonia, normal white count, hemoglobin slightly low but not requiring transfusion, platelets are appropriate potassium 2.8, sodium is 140 with otherwise normal renal function, bilirubin slightly elevated but otherwise normal LFTs troponins negative but BNP is 4000 which is higher than patient's prior. Suspect a component of CHF. 4 plex resp swab is is negative today. Chest x-ray shows changes can more consistent with pulmonary edema. Patient was provided oral potassium, given additional dose of Lasix. Discussed with patient she is ambulating without issue no hypoxia, blood pressure is still elevated but improving. She feels comfortable returning home she has a follow up appointment on the 16 of April and is supposed to have her labs redrawn this week asked her to get them redrawn in the next couple days. Patient is agreeable she states she has plenty of potassium and Lasix at home. She states she takes 20 mg of Lasix daily. I suspect she has not upper respiratory infection superimposed on top of acute CHF exacerbation with some hypokalemia. Patient states she has been low with her potassium in the past. We discussed that she will need to take extra potassium while her Lasix is elevated in order to make sure it does not run too low as Lasix will help decrease her potassium level. Discharge Plan Departure Patient Disposition: Home Clinical Impression: Acute exacerbation of CHF (congestive heart failure), Hypokalemia, URI (upper respiratory infection) Instructions: DI for Hypokalemia Activity Restrictions/Additional Instructions: Follow-up with your physician for recheck. Please have your labs (your electrolytes and kidney function) rechecked this week to make sure that your potassium is not continuing to drop especially because we have increased your diuretic. Your workup today shows that your potassium is low and that you appear to be having an exacerbation of CHF or increase pulmonary edema. Increase your Lasix from 20 mg daily (1 tablet) to 40 mg daily (2 tablet)for 4 days. It is also important that you increase your potassium from 10 mEq (1 tablet) to 20 meq (2 tablets) for the next 5 days. Please return for fevers, new or worsening chest pain, shortness of breath, increasing difficulty lying flat, new swelling in your legs, persistent vomiting, heart arrhythmias irregularity, new weakness or other new or concerning changes. Prescriptions: No Action aspirin 81 mg Tablet,Delayed Release (Dr/Ec) 81 mg PO DAILY Qty: 0 nitroglycerin [Nitrostat] 0.4 MG tablet, sublingual 0.4 mg Sublingual PRN Qty: 30 0RF levalbuterol tartrate [Xopenex HFA] 45 MCG/INH HFA aerosol inhaler 2 puff INH Q4HP PRNQty: 15 0RF (DME) handi cap placard See Rx Instructions .Route .MEDSUPPLY Qty: 1 0RF Rx Instructions: As directed lisinopril 20 mg tablet See Rx Instructions .ROUTE .COMPLEX Qty: 90 0RF Dose Instruction: TAKE 1 TABLET BY MOUTH ONCE DAILY FOR HIGH BLOOD PRESSURE. Rx Instructions: TAKE 1 TABLET BY MOUTH ONCE DAILY FOR HIGH BLOOD PRESSURE. atorvastatin 40 mg tablet See Rx Instructions .ROUTE .COMPLEX Qty: 90 0RF Dose Instruction: TAKE 1 TABLET BY MOUTH ONCE NIGHTLY FOR HIGH CHOLESTEROL. Rx Instructions: TAKE 1 TABLET BY MOUTH ONCE NIGHTLY FOR HIGH CHOLESTEROL. furosemide 20 mg tablet See Rx Instructions .ROUTE .COMPLEX Qty: 90 0RF Dose Instruction: TAKE 1 TABLET BY MOUTH ONCE DAILY FOR HEART. Rx Instructions: TAKE 1 TABLET BY MOUTH ONCE DAILY FOR HEART. diltiazem HCl [DILT-XR] 120 mg capsule,ext.rel 24h degradable See Rx Instructions .ROUTE .COMPLEX Qty: 180 0RF Dose Instruction: TAKE 1 CAPSULE (120 MG TOTAL) BY MOUTH 2 (TWO) TIMES A DAY Rx Instructions: TAKE 1 CAPSULE (120 MG TOTAL) BY MOUTH 2 (TWO) TIMES A DAY potassium chloride 10 mEq capsule, extended release See Rx Instructions .ROUTE .COMPLEX Qty: 90 0RF Dose Instruction: TAKE 1 CAPSULE (10 MEQ TOTAL) BY MOUTH DAILY Rx Instructions: TAKE 1 CAPSULE (10 MEQ TOTAL) BY MOUTH DAILY albuterol sulfate 90 mcg/actuation HFA aerosol inhaler 2 inh inhalation Q4-6H PRN (Reason: shortness of breath or wheezing) Qty: 8.5 3RF Qvar RediHaler 80 mcg/actuation HFA aerosol breath activated 1 inh INHALATION BID Qty: 10.6 3RF Alvesco 80 mcg/actuation HFA aerosol inhaler 1 puff inhalation BID Qty: 6.1 3RF omeprazole 20 mg capsule,delayed release(DR/EC) See Rx Instructions .ROUTE .COMPLEX Qty: 90 1RF Dose Instruction: TAKE 1 CAPSULE BY MOUTH DAILY Rx Instructions: TAKE 1 CAPSULE BY MOUTH DAILY metformin 500 mg tablet extended release 24 hr 500 mg PO .evening meal Qty: 180 0RF Rx Instructions: take with meal sertraline 100 mg tablet 200 mg PO ONCE PM Qty: 180 2RF cholecalciferol (vitamin D3) PO ascorbic acid (vitamin C) PO multivitamin Tablet 1 tab PO DAILY Glucagon Emergency Kit (human) 1 mg recon soln 1 mg IM ONCE Qty: 1 0RF ipratropium bromide 0.2 MG/1 ML solution 2.5 ml INH BID PRN (Reason: Shortness Of Breath) Glucose: Home Monitoring Kit 1 kit DIRECTED Spacer: Inhaler Spacer Device 1 pac DIRECTED Nebulizer: Home Unit 1 pkg DIRECTED Xarelto 20 mg Tablet 20 mg PO DAILY Referrals: Agatha Oconnell DO [Primary Care Provider] - Stand Alone Forms: Patient Portal/API
[2023-04-04 09:31] LABS: Add Manual Diff / Slide Review NO; Basophils Absolute Auto 100 /uL (0-100); Basophils Percent Auto 1.5 % (0-2); Eosinophils Absolute Auto 200 /uL (0-450); Eosinophils Percent Auto 2.2 % (2-4); Hematocrit 33.7 % (36-46); Hemoglobin 11.1 g/dL (12.0-16.0); Lymphocytes Absolute Auto 1700 /uL (1100-4500); Lymphocytes Percent Auto 21.9 % (25-40); Mean Corpuscular Hemoglobin 25.8 PG (26-34); Mean Corpuscular Volume 78.3 fL (80-100); Monocytes Absolute Auto 500 /uL (0-900); Monocytes Percent Auto 6.4 % (3-14); Neutrophils Absolute Auto 5200 /uL (1500-7000); Platelet Count 265 X10^3/uL (150-400); Red Cell Distribution Width 16.1 % (11.6-14.8); White Blood Cell Count 7.7 X10^3/uL (4.5-11.0)
[2023-04-04 09:43] LABS: Alanine Aminotransferase 15 IU/L (<35); Albumin 4.2 g/dL (3.5-5.0); Albumin Globulin Ratio 1.3 (1.0-2.8); Alkaline Phosphatase 75 U/L (38-126); Aspartate Aminotransferase 20 IU/L (14-36); BUN Creatinine Ratio 13.6 (6-22); Bilirubin Total 1.6 mg/dL (0.2-1.3); Blood Urea Nitrogen 9 mg/dL (7-17); Calcium 9.2 mg/dL (8.4-10.2); Carbon Dioxide 29 mmol/L (22-32); Chloride 102 mmol/L (98-107); Creatine Kinase 76 U/L (30-135); Estimated Glomerular Filt Rate > 60 mL/min (>60); Globulin 3.3 g/dL (1.7-4.1); Glucose 146 mg/dL (80-110); HEMOLYSIS < 15 (0-50); Lipase 88 U/L (23-300); Potassium 2.8 mmol/L (3.4-5.1); Sodium 140 mmol/L (137-145); Total Protein 7.5 g/dL (6.3-8.2)
[2023-04-04 09:52] LABS: Influenza A - CEPHEID Flu A NEGATIVE (NEGATIVE); Influenza B - CEPHEID Flu B NEGATIVE (NEGATIVE); Respiratory Syncytial Virus Negative (Negative)
[2023-04-04 09:55] LABS: NT-proBNP (BNP-Adult 18+) 4030 pg/mL (<450); Troponin I 0.012 ng/mL (0.01-0.034)
[2023-04-04 09:58] LABS: COVID-19 CEPHEID 4-PLEX PCR Negative (Negative)
--- NOTE | 2023-04-04 10:21 | PC.NURSE ---
out to waiting area for BP recheck. Unable to find pt at this time.
[2023-04-04 11:13] VITALS: BP 204/95; PULSE 62; RESP 16; O2SAT 97
[2023-04-04] MEDS: FUROSEMIDE 40 MG TABLET PO (11:15)
[2023-04-04] MEDS: POTASSIUM CHLORIDE 20 MEQ TAB 40 MEQ PO (11:15)
== END 2023-04-04 11:38 | disposition home or self-care (01) ==
PROVIDERS: Emergency Provider Emergency Medicine; Family Provider Family Medicine; PCP Family Medicine
DX: I50.9 Heart failure, unspecified (principal); E87.6 Hypokalemia; J06.9 Acute upper respiratory infection, unspecified; R05.9 Cough, unspecified; Z20.822 Contact with and (suspected) exposure to COVID-19
CPT/HCPCS: 0241U; 36415; 71045; 80053; 82550; 83690; 83880; 84484; 85025; 93005; 93010; 99284

== ENCOUNTER → 2023-04-05 14:56 | Outpatient (CLI) | payer OTHER, SELFPAY ==
[2023-04-05 16:52] LABS: Hematocrit 35.5 % (36-46); Hemoglobin 11.8 g/dL (12.0-16.0); Mean Corpuscular HGB Conc 33.2 % (30-36); Mean Corpuscular Hemoglobin 26.1 PG (26-34); Mean Corpuscular Volume 78.6 fL (80-100); Platelet Count 300 X10^3/uL (150-400); Red Blood Cell Count 4.51 X10^6/uL (4.0-5.2); Red Cell Distribution Width 16.1 % (11.6-14.8); White Blood Cell Count 8.1 X10^3/uL (4.5-11.0)
[2023-04-05 16:57] LABS: Hemoglobin A1C% w Est Avg Glu 6.7 % (4.0-6.0)
[2023-04-05 17:02] LABS: Alanine Aminotransferase 13 IU/L (<35); Albumin 4.3 g/dL (3.5-5.0); Albumin Globulin Ratio 1.3 (1.0-2.8); Alkaline Phosphatase 86 U/L (38-126); Aspartate Aminotransferase 18 IU/L (14-36); BUN Creatinine Ratio 13.7 (6-22); Bilirubin Total 1.9 mg/dL (0.2-1.3); Blood Urea Nitrogen 10 mg/dL (7-17); Calcium 9.1 mg/dL (8.4-10.2); Carbon Dioxide 34 mmol/L (22-32); Chloride 97 mmol/L (98-107); Cholesterol 162 mg/dL (140-199); Estimated Glomerular Filt Rate > 60 mL/min (>60); Globulin 3.2 g/dL (1.7-4.1); Glucose 182 mg/dL (80-110); HDL Cholesterol 42 mg/dL (40-60); HEMOLYSIS < 15 (0-50); LDL Cholesterol Calculated 100 mg/dL (<100); Potassium 3.1 mmol/L (3.4-5.1); Sodium 141 mmol/L (137-145); Total Protein 7.5 g/dL (6.3-8.2); Triglycerides 99 mg/dL (35-150)
[2023-04-05 17:05] LABS: High Sensitivity CRP - Cardiac 5.5 mg/L (1.0-3.0)
[2023-04-05 17:08] LABS: NT-proBNP (BNP-Adult 18+) 1800 pg/mL (<450)
== END ==
PROVIDERS: Family Provider Family Medicine; PCP Family Medicine; Referring Provider Family Medicine; Visit Provider Family Medicine
DX: I10 Essential (primary) hypertension (principal); J44.9 Chronic obstructive pulmonary disease, unspecified; E11.29 Type 2 diabetes mellitus with other diabetic kidney complication; R80.9 Proteinuria, unspecified; E11.9 Type 2 diabetes mellitus without complications; E66.9 Obesity, unspecified; I50.9 Heart failure, unspecified; N20.0 Calculus of kidney; E87.6 Hypokalemia; I48.91 Unspecified atrial fibrillation; I34.0 Nonrheumatic mitral (valve) insufficiency; I07.1 Rheumatic tricuspid insufficiency
CPT/HCPCS: 36415; 80053; 80061; 83036; 83880; 85027; 86140; 93010

== ENCOUNTER 2023-04-05 21:45 | Observation (INO) | payer OTHER, SELFPAY ==
[2023-04-05] VITALS (7 sets, daily range): BP systolic 130–178; BP diastolic 70–113; PULSE 42–115; RESP 18–30; TEMP 36.1; O2SAT 91–97; BMI 28.3
--- NOTE | 2023-04-05 21:58 | DI.RAD.S_ITS ---
PROCEDURE: XR CHEST 1V INDICATIONS: chest pain TECHNIQUE: One view of the chest was acquired. COMPARISON: [facility], CR, XR CHEST 1V, 04/04/2023, 9:08. FINDINGS: Surgical changes and devices: Sternal wires. Lungs and pleura: Lungs are clear. No pleural effusions or pneumothorax. Mediastinum: Mediastinal contours appear normal. Heart size is enlarged. Bones and chest wall: No suspicious bony lesions. Overlying soft tissues appear unremarkable. IMPRESSION: No acute pulmonary process. Dictated by: Va Kirkpatrick M.D. on 04/05/2023 at 23:14 Approved by: Va Kirkpatrick M.D. on 04/05/2023 at 23:14
--- NOTE | 2023-04-05 22:03 | ED.GENADULT ---
HPI - General Adult General Chief complaint: Chest Pain Stated complaint: Dizzy/Headache/low potassium Time Seen by Provider: 04/05/23 22:02 Source: patient Mode of arrival: Family Vehicle History of Present Illness HPI narrative: 78-year-old woman with a history of cardiac problems including open heart surgery for repair of an ASD defect, cardiac stent, congestive heart failure currently on Xarelto, history of diabetes, COPD and chronically low potassium presents for the 2nd time in 2 days. She was seen yesterday complaining of chills and fever and was felt to have mild congestive heart failure exacerbation with mildly low potassium and was discharged home. This evening around 7:00 p.m. she began noticing that she was having brief episodes of significant dizziness bandlike tightness around her chest and pain radiating down her right arm into her right hand all associated with dyspnea. She describes fairly significant orthopnea last night and had fairly poor sleep because of that she states that she had her daughter's oximeter and noticed that while she was sleeping her oxygen saturations would get down to 86-88%. Additional history she provides includes all of the symptoms starting on March 24. She had a COVID and flu vaccination at that time. That evening she noticed low-grade fever increasing cough and nasal fullness and stuffiness. The viral like syndrome has persisted which led to yesterday's visit. She does not describe nausea, vomiting, diarrhea, headaches, acute neurologic complaints otherwise Related Data Home Medications Medication Instructions Recorded Confirmed aspirin 81 mg tablet,delayed 81 mg PO DAILY ##0 03/03/11 08/12/22 release Glucose: Home Monitoring Kit 1 kit DIRECTED 11/04/17 08/12/22 Nebulizer: Home Unit 1 pkg DIRECTED 11/04/17 08/12/22 Spacer: Inhaler Spacer Device 1 pac DIRECTED 11/04/17 08/12/22 ipratropium bromide 0.02 % 2.5 ml INH BID PRN Shortness Of 11/04/17 08/12/22 solution for inhalation Breath rivaroxaban 20 mg tablet (Xarelto) 20 mg PO DAILY 04/20/19 08/12/22 ascorbic acid (vitamin C) PO 08/12/22 08/12/22 cholecalciferol (vitamin D3) PO 08/12/22 08/12/22 multivitamin 1 tab PO DAILY 08/12/22 08/12/22 Previous Rx's Medication Instructions Recorded nitroglycerin 0.4 mg sublingual 0.4 mg sublingual PRN #30 tabs 07/20/16 tablet (Nitrostat) levalbuterol tartrate 45 2 puff INH Q4HP PRN ##15 03/31/17 mcg/actuation aerosol inhaler (Xopenex HFA) glucagon (human recombinant) 1 mg 1 mg IM ONCE #1 ea 11/24/18 solution for injection (Glucagon Emergency Kit) handi cap placard #1 ea 06/26/20 atorvastatin 40 mg tablet See Rx Instructions .Route 10/24/21 .COMPLEX #90 tabs diltiazem HCl 120 mg See Rx Instructions .Route 10/24/21 capsule,extended release 24 hr, .COMPLEX #180 caps controlled (DILT-XR) furosemide 20 mg tablet See Rx Instructions .Route 10/24/21 .COMPLEX #90 tabs lisinopril 20 mg tablet See Rx Instructions .Route 10/24/21 .COMPLEX #90 tabs potassium chloride 10 mEq See Rx Instructions .Route 10/24/21 capsule,extended release .COMPLEX #90 caps albuterol sulfate 90 mcg/actuation 2 inh inhalation Q4-6H PRN 06/24/22 aerosol inhaler shortness of breath or wheezing #8.5 grams beclomethasone dipropionate 80 1 inh inhalation BID #10.6 grams 06/24/22 mcg/actuation HFA breath activated aerosol (Qvar RediHaler) ciclesonide 80 mcg/actuation 1 puff inhalation BID #6.1 grams 07/03/22 aerosol inhaler (Alvesco) omeprazole 20 mg capsule,delayed See Rx Instructions .Route 10/09/22 release .COMPLEX #90 caps metformin 500 mg tablet,extended 500 mg PO .evening meal #180 tabs 12/03/22 release 24 hr sertraline 100 mg tablet 200 mg (2 x 100 mg) PO ONCE PM 02/11/23 #180 tabs Allergies Allergy/AdvReac Type Severity Reaction Status Date / Time amoxicillin [AMOXICILLIN] Allergy Mild GI Verified 04/05/23 21:57 erythromycin base Allergy Mild N/V Verified 04/05/23 21:57 [ERYTHROMYCIN BASE] lanolin [LANOLIN] Allergy Mild Roof of Verified 04/05/23 21:57 mouth tastes greasy Review of Systems Review of Systems Narrative: Pertinent positive and negative findings as per HPI Patient History Medical History Tricuspid valve regurgitation Mitral valvular regurgitation Nephrolithiasis Cervicalgia Chronic kidney disease (CKD) stage G3a/A1, moderately decreased glomerular filtration rate (GFR) between 45-59 mL/min/1.73 square meter and albuminuria creatinine ratio less than 30 mg/g Hematuria Hypertension Hyperlipidemia CAD (coronary artery disease) Atrial fibrillation Right trigger finger Right knee dislocation Shoulder pain, bilateral Diabetes mellitus Surgical History History of repair of atrial septal defect Status post excision of lipoma (~07/17/08) Status post arthroscopy (03/16/13) Status post cardiac catheterization (~2011) History of carpal tunnel repair (~1998) History of carpal tunnel repair (~2013) Family History Father CAD (coronary artery disease) CVA (cerebral infarction) Hypertension Mother Abdominal aortic aneurysm without rupture Social History Smoking Status: Never smoker Smoking Status: Never smoker alcohol intake frequency: holidays/special occasions only Substance Use Type: does not use Exam Initial Vital Signs Initial Vital Signs: Vital Signs Temperature 97.0 F L 04/05/23 21:54 Pulse Rate 42 L 04/05/23 21:54 Respiratory Rate 18 04/05/23 21:54 Blood Pressure 131/70 04/05/23 21:54 Pulse Oximetry 96 04/05/23 21:54 Oxygen Delivery Method Room Air 04/05/23 21:54 General: Chronically ill-appearing, in no acute distress. Able to give a complete and coherent history. HEENT: Moist mucous membranes, normal sclera with reactive pupils, Neck: + JVD, supple Respiratory: Lungs diminished lung sounds throughout with no obvious wheezing or rales. Cardiac: Irregular with no murmurs appreciated Abdomen: Soft, nontender, good bowel tones, no flank pain Skin: Pale, Warm and dry, no rashes Neurologic: Grossly neurologically intact with no obvious asymmetries or abnormalities Extremities: No trauma, well perfused, no lower extremity edema Psych: Cooperative, appropriate insight and affect Course Orders Ordered: ED Orders 04/05/23 21:58 XR chest 1V Stat EKG-12 Lead Stat 04/05/23 22:00 BNP [NT-proBNP (BNP-Adult 18+)] Stat Complete Blood Count AUTO DIFF Stat Comprehensive Metabolic Panel Stat Lipase Stat Magnesium Stat PTT Partial Thromboplastin Fracisco Stat Prothrombin Time INR Stat Troponin & CK Cardiac Panel Stat 04/05/23 22:25 UA Complete [Urinalysis and Microscopic] Stat 04/05/23 22:30 Respiratory Panel (Film Array) Stat POTASSIUM CHLORIDE IN WATER (Potassium Cl 10 Meq/100 Ml Marlee) 10 meq in 100 mls @ 100 mls/hr IV Q1H RUDDY Stop: 04/06/23 05:29 Last Admin: 04/05/23 23:49 Dose: 100 mls/hr Documented By: MADISON Magnesium Sulfate (Magnesium Sulfate) 2 gm in 50 mls @ 25 mls/hr IV NOW ONE Stop: 04/06/23 01:57 Last Admin: 04/06/23 00:17 Dose: 25 mls/hr Documented By: MADISON Co-signed By: JOANNE Discontinued Medications Aspirin (Aspirin 81 Mg Chew Tab) 324 mg PO NOW ONE Stop: 04/05/23 21:59 Last Admin: 04/05/23 22:20 Dose: 324 mg Documented By: MONIKA Magnesium Sulfate (Magnesium Sulfate) 2 gm in 50 mls @ 150 mls/hr IV NOW ONE Stop: 04/05/23 23:36 Last Infusion: 04/05/23 23:47 Dose: Infused Documented By: MADISON Co-signed By: JOANNE Admin: 04/05/23 23:28 Dose: 150 mls/hr Documented By: MADISON Co-signed By: MONIKA Vital Signs Vital signs: Vital Signs - 8 hr 04/05/23 21:54 04/05/23 21:54 04/05/23 21:54 Temperature 97.0 F L Pulse Rate 42 L 45 L Respiratory Rate 18 Blood Pressure 131/70 131/70 Pulse Oximetry 96 97 Oxygen Delivery Method Room Air 04/05/23 22:00 04/05/23 22:03 04/05/23 22:03 Temperature Pulse Rate 115 H 92 H Respiratory Rate 26 H 28 H Blood Pressure 130/75 Pulse Oximetry 92 93 Oxygen Delivery Method 04/05/23 22:30 04/05/23 22:30 04/05/23 23:00 Temperature Pulse Rate 86 81 Respiratory Rate 27 H 30 H Blood Pressure 178/101 H Pulse Oximetry 93 91 Oxygen Delivery Method 04/05/23 23:00 04/05/23 23:30 04/05/23 23:31 Temperature Pulse Rate 62 Respiratory Rate 25 H Blood Pressure 178/113 H 175/72 H Pulse Oximetry 95 Oxygen Delivery Method 04/05/23 23:31 04/06/23 00:00 04/06/23 00:24 Temperature Pulse Rate 68 67 62 Respiratory Rate 30 H 20 18 Blood Pressure Pulse Oximetry 95 93 94 Oxygen Delivery Method Room Air 04/06/23 00:24 Temperature Pulse Rate Respiratory Rate Blood Pressure 161/117 H Pulse Oximetry Oxygen Delivery Method Medical Decision Making Lab Data 04/05/23 22:00 04/05/23 22:00 Labs: Lab Results 04/05/23 04/05/23 Range/Units 22:00 22:30 WBC 9.2 (4.5-11.0) X10^3/uL RBC 4.48 (4.0-5.2) X10^6/uL Hgb 11.7 L (12.0-16.0) g/dL Hct 35.3 L (36-46) % MCV 78.7 L (80-100) fL MCH 26.2 (26-34) PG MCHC 33.3 (30-36) % RDW 16.3 H (11.6-14.8) % Plt Count 303 (150-400) X10^3/uL Neut % (Auto) 68.4 (50-75) % Lymph % (Auto) 23.3 L (25-40) % [place] % (Auto) 6.1 (3-14) % Eos % (Auto) 1.9 L (2-4) % Baso % (Auto) 0.3 (0-2) % Neut # (Auto) 6300 (4610-2745) /uL Lymph # (Auto) 2100 (1913-0062) /uL [place] # (Auto) 600 (0-900) /uL Eos # (Auto) 200 (0-450) /uL Baso # (Auto) 0 (0-100) /uL PT 14.0 H (10.1-12.7) SECONDS INR 1.2 (0.9-1.3) APTT 33 (26-36) SECONDS Sodium 140 (137-145) mmol/L Potassium 2.9 L (3.4-5.1) mmol/L Chloride 97 L (98-107) mmol/L Carbon Dioxide 30 (22-32) mmol/L BUN 11 (7-17) mg/dL Creatinine 0.71 (0.52-1.04) mg/dL Estimated GFR > 60 (>60) mL/min BUN/Creatinine Ratio 15.5 (6-22) Glucose 243 H (80-110) mg/dL Calcium 8.8 (8.4-10.2) mg/dL Magnesium 1.2 L (1.6-2.3) mg/dL Total Bilirubin 1.6 H (0.2-1.3) mg/dL AST 19 (14-36) IU/L ALT 17 (<35) IU/L Alkaline Phosphatase 87 (38-126) U/L Total Creatine Kinase 73 (30-135) U/L Troponin I 0.013 (0.01-0.034) ng/mL NT-Pro-B Natriuret Pep 1420 H (<450) pg/mL Total Protein 8.2 (6.3-8.2) g/dL Albumin 4.5 (3.5-5.0) g/dL Globulin 3.7 (1.7-4.1) g/dL Albumin/Globulin Ratio 1.2 (1.0-2.8) Lipase 141 D (23-300) U/L Chlamy pneumoniae PCR Not detected (Not Detect) Adenovirus (PCR) Not detected (Not Detect) B.parapertussis DNA PCR Not detected (Not Detecte) Coronavirus OC43 (PCR) Not detected (Not Detect) Coronavirus HKU1 (PCR) Not detected (Not Detect) Coronavirus 229E (PCR) Not detected (Not Detect) SARS-CoV-2 (PCR) Not detected (Not Detecte) Coronavirus NL63 (PCR) Not detected (Not Detect) Human Metapneumovir PCR Not detected (Not Detect) Influenza A (H1) PCR Not detected (Not Detect) Influenza A (PCR) Not detected (Not Detect) Influenza Type A (PCR) Not detected (Not Detect) Influenza Type B (PCR) Not detected (Not Detect) M. pneumoniae (PCR) Not detected (Not Detect) Parainfluenza 1 (PCR) Not detected (Not Detect) Parainfluenza 2 (PCR) Not detected (Not Detect) Parainfluenza 3 (PCR) Not detected (Not Detect) Parainfluenza 4 (PCR) Not detected (Not Detect) RSV (PCR) Not detected (Not Detect) Entero/Rhino (PCR) Not detected (Not Detect) MDM Narrative Medical decision making narrative: CC: Episode starting this evening of dizziness with chest tightness and right arm pain Complicating co-morbidities: Atrial fibrillation, cardiac disease hyperlipidemia, COPD, known hypokalemia Data collected from: patient, Medical records reviewed: ER notes from yesterday with similar complaints reviewed. Prior family practice notes are also reviewed Differential considered: Acute coronary syndrome, underlying rhythm disturbance, electrolyte abnormalities, sepsis Exam documented above, pertinent findings include: Patient is alert and appropriate. Exam is relatively benign. She has an irregular heart rate, mild JVD no significant lower extremity edema Lab Test results independently reviewed as above. Pertinent findings: CBC is unremarkable CMP shows potassium at 2.9, normal renal function, magnesium low at 1.2, bilirubin is chronically elevated and stable at 1.6. ProBNP is minimally elevated at 1420 lipase is minimally elevated at 141 Troponin is undetectable BNP is moderately lower than 2 days ago currently at 1420 Independently reviewed EKG shows bradycardia that likely is atrial fibrillation at a rate of 84. She is having multiple PVCs, nonspecific STT wave changes. In comparison to prior EKGs she is significantly more PVCs Imaging studies independently reviewed: Chest x-ray is unremarkable Consultations:Dr Alberts, tele hospitalist will admit the patient Treatments: Parenteral replacement of both magnesium and potassium Re-evaluations:12:42am Tele demonstrates dramatically fewer PVCs and it does look like the QRS is narrowing a bit. After 4 g of magnesium we will recheck EKG. Patient notes that the dizzy spells and tightness through her chest radiating out into her right arm are not seeming to bother her anymore Discussion: 78-year-old woman with a history of atrial fibrillation congestive heart failure who presents with dizziness associated with chest pain radiating down her right arm and across her chest with the dizzy episodes. There is no evidence of acute coronary syndrome however her electrolytes were significantly abnormal with magnesium low at 1.2 and potassium low at 2.9. Once the magnesium was started to be replaced her frequent PVCs have calm nicely and the dizzy episodes and intermittent episodes of chest tightness have also completely resolved. Her BNP is trending down from 2 days ago and clinically she has minimal signs or symptoms of congestive heart failure. I suspect the majority of her symptoms are from the significant electrolyte abnormalities. She will continue with parenteral replacement of both potassium and magnesium and will need further evaluation in the morning. Code status: Clearly reviewed with patient and she is full code Discharge Plan Departure Patient Disposition: Admitted as Observation Clinical Impression: Dizziness, Hypokalemia, Hypomagnesemia, Frequent unifocal PVCs Admit Date/Time: 04/06/23 01:17
[2023-04-05] MEDS: ASPIRIN 81 MG CHEW TAB 324 MG PO (22:20)
[2023-04-05 22:23] LABS: Add Manual Diff / Slide Review NO; Basophils Absolute Auto 0 /uL (0-100); Basophils Percent Auto 0.3 % (0-2); Eosinophils Absolute Auto 200 /uL (0-450); Eosinophils Percent Auto 1.9 % (2-4); Hematocrit 35.3 % (36-46); Hemoglobin 11.7 g/dL (12.0-16.0); Lymphocytes Absolute Auto 2100 /uL (1100-4500); Lymphocytes Percent Auto 23.3 % (25-40); Mean Corpuscular HGB Conc 33.3 % (30-36); Mean Corpuscular Hemoglobin 26.2 PG (26-34); Mean Corpuscular Volume 78.7 fL (80-100); Monocytes Absolute Auto 600 /uL (0-900); Monocytes Percent Auto 6.1 % (3-14); Neutrophils Absolute Auto 6300 /uL (1500-7000); Neutrophils Percent Auto 68.4 % (50-75); Platelet Count 303 X10^3/uL (150-400); Red Blood Cell Count 4.48 X10^6/uL (4.0-5.2); Red Cell Distribution Width 16.3 % (11.6-14.8); White Blood Cell Count 9.2 X10^3/uL (4.5-11.0)
[2023-04-05 22:29] LABS: INR 1.2 (0.9-1.3)
[2023-04-05 22:32] LABS: PTT Partial Thromboplastin Tim 33 SECONDS (26-36)
[2023-04-05 22:35] LABS: Alanine Aminotransferase 17 IU/L (<35); Albumin 4.5 g/dL (3.5-5.0); Albumin Globulin Ratio 1.2 (1.0-2.8); Alkaline Phosphatase 87 U/L (38-126); Aspartate Aminotransferase 19 IU/L (14-36); BUN Creatinine Ratio 15.5 (6-22); Bilirubin Total 1.6 mg/dL (0.2-1.3); Blood Urea Nitrogen 11 mg/dL (7-17); Calcium 8.8 mg/dL (8.4-10.2); Carbon Dioxide 30 mmol/L (22-32); Chloride 97 mmol/L (98-107); Creatine Kinase 73 U/L (30-135); Estimated Glomerular Filt Rate > 60 mL/min (>60); Globulin 3.7 g/dL (1.7-4.1); Glucose 243 mg/dL (80-110); HEMOLYSIS < 15 (0-50); Lipase 141 U/L (23-300); Magnesium 1.2 mg/dL (1.6-2.3); Potassium 2.9 mmol/L (3.4-5.1); Sodium 140 mmol/L (137-145); Total Protein 8.2 g/dL (6.3-8.2)
[2023-04-05 22:46] LABS: Troponin I 0.013 ng/mL (0.01-0.034)
[2023-04-05 23:05] LABS: NT-proBNP (BNP-Adult 18+) 1420 pg/mL (<450)
[2023-04-05] MEDS: MAGNESIUM SULFATE 2 GM/50 ML PIGGYBACK IV (23:28)
[2023-04-05 23:29] LABS: Influenza A Not Detected (Not Detect)
[2023-04-05 23:30] LABS: Adenovirus Not Detected (Not Detect); B. parapertussis Not Detected (Not Detecte); Bordetella pertussis Not Detected (Not Detect); Chlamydophila pneumoniae Not Detected (Not Detect); Coronavirus 229E Not Detected (Not Detect); Coronavirus HKU1 Not Detected (Not Detect); Coronavirus NL 63 Not Detected (Not Detect); Coronavirus OC43 Not Detected (Not Detect); Human Metapneumovirus Not Detected (Not Detect); Human Rhinovirus/Enterovirus Not Detected (Not Detect); Influenza A H1 Not Detected (Not Detect); Influenza A(No subj detected) Not Detected (Not Detect); Influenza B Not Detected (Not Detect); Mycoplasma pneumoniae Not Detected (Not Detect); Parainfluenza Virus 1 Not Detected (Not Detect); Parainfluenza Virus 2 Not Detected (Not Detect); Parainfluenza Virus 3 Not Detected (Not Detect); Parainfluenza Virus 4 Not Detected (Not Detect); Respiratory Syncytial Virus Not Detected (Not Detect); SARS- CoV-2 Not Detected (Not Detecte)
[2023-04-05] MEDS: POTASSIUM CHLORIDE IN WATER 10 MEQ/100 ML PIGGYBACK 100 MEQ IV (23:49)
[2023-04-06] VITALS (29 sets, daily range): BP systolic 151–183; BP diastolic 72–117; PULSE 60–83; RESP 18–42; TEMP 37.1; O2SAT 90–97; BMI 28.3
[2023-04-06] MEDS: MAGNESIUM SULFATE 2 GM/50 ML PIGGYBACK IV (00:17)
[2023-04-06] MEDS: POTASSIUM CHLORIDE IN WATER 10 MEQ/100 ML PIGGYBACK 100 MEQ IV ×5 (00:57→05:27)
[2023-04-06] MEDS: lisinopriL 20 MG TABLET PO ×2 (02:02→08:28)
[2023-04-06 02:41] LABS: Appearance Urine UA CLEAR; Bilirubin Urine UA NEGATIVE (NEGATIVE); Color Urine UA YELLOW; Glucose Urine UA NEGATIVE (Negative); Ketones Urine UA NEGATIVE (NEGATIVE); Leukocyte Esterase Urine UA 1+ (NEGATIVE); Nitrite Urine UA NEGATIVE (Negative); Occult Blood Urine UA NEGATIVE (Negative); Protein Urine UA TRACE (Negative); Specific Gravity Urine UA 1.015 (1.000-1.035)
[2023-04-06 02:51] LABS: Bacteria Urine Occasional (0-1); Culture Indicated Urine Cult Not Indicated; RBC Urine None Seen (0-5/HPF); Squamous Epithelial Cell Urine 5-10 /HPF (0-5/HPF); WBC Urine 0-1/HPF (0-5/HPF)
--- NOTE | 2023-04-06 03:56 | P.HP_ITS ---
History of Present Illness History of Present Illness Date Patient Seen: 04/06/23 Chief complaint: Dizzy/Headache/low potassium Narrative: 78 y/o with PMH of COPD, CAD, A-fib on Xarelto, prior ASD repair, diabetes type 2, HTN, HLD, who was seen in ED om 04/04 with fluid overload and upper respiratory infection and had her Lasix increased from 20 to 40 mg daily for 4 days with increase of potassium from 10 to 20 mEq, presented to ED complaining on dizziness. Workup revealed hypokalemia, hypomagnesemia and frequent PVCs and bigeminy. She was treated with Mg, received 2 x 2 g and K, receiving 4th 10 mEq rider, out of 6 ordered, at the time of admission. Over the past few hours number of PVCs decreased significantly on the monitor and she does not feel dizzy anymore. Placed in observation on telemetry to replace electrolytes. [facility] Medical History Tricuspid valve regurgitation Mitral valvular regurgitation Nephrolithiasis Cervicalgia Chronic kidney disease (CKD) stage G3a/A1, moderately decreased glomerular filtration rate (GFR) between 45-59 mL/min/1.73 square meter and albuminuria creatinine ratio less than 30 mg/g Hematuria Hypertension Hyperlipidemia CAD (coronary artery disease) Atrial fibrillation Right trigger finger Right knee dislocation Shoulder pain, bilateral Diabetes mellitus Surgical History History of repair of atrial septal defect Status post excision of lipoma (~07/17/08) Status post arthroscopy (03/16/13) Status post cardiac catheterization (~2011) History of carpal tunnel repair (~1998) History of carpal tunnel repair (~2013) Family History Father CAD (coronary artery disease) CVA (cerebral infarction) Hypertension Mother Abdominal aortic aneurysm without rupture Social History household members: family Smoking Status: Never smoker Meds Home Medications and Allergies Home Medications Medication Instructions Recorded Confirmed Type aspirin 81 mg tablet,delayed 81 mg PO DAILY ##0 03/03/11 08/12/22 History release nitroglycerin 0.4 mg sublingual 0.4 mg sublingual PRN #30 tabs 07/20/16 08/12/22 Rx tablet (Nitrostat) levalbuterol tartrate 45 2 puff INH Q4HP PRN ##15 03/31/17 08/12/22 Rx mcg/actuation aerosol inhaler (Xopenex HFA) Glucose: Home Monitoring Kit 1 kit DIRECTED 11/04/17 08/12/22 History Nebulizer: Home Unit 1 pkg DIRECTED 11/04/17 08/12/22 History Spacer: Inhaler Spacer Device 1 pac DIRECTED 11/04/17 08/12/22 History ipratropium bromide 0.02 % 2.5 ml INH BID PRN Shortness Of 11/04/17 08/12/22 History solution for inhalation Breath glucagon (human recombinant) 1 mg 1 mg IM ONCE #1 ea 11/24/18 08/12/22 Rx solution for injection (Glucagon Emergency Kit) rivaroxaban 20 mg tablet (Xarelto) 20 mg PO DAILY 04/20/19 08/12/22 History handi cap placard #1 ea 06/26/20 08/12/22 Rx atorvastatin 40 mg tablet See Rx Instructions .Route 10/24/21 08/12/22 Rx .COMPLEX #90 tabs diltiazem HCl 120 mg See Rx Instructions .Route 10/24/21 08/12/22 Rx capsule,extended release 24 hr, .COMPLEX #180 caps controlled (DILT-XR) furosemide 20 mg tablet See Rx Instructions .Route 10/24/21 08/12/22 Rx .COMPLEX #90 tabs lisinopril 20 mg tablet See Rx Instructions .Route 10/24/21 08/12/22 Rx .COMPLEX #90 tabs potassium chloride 10 mEq See Rx Instructions .Route 10/24/21 08/12/22 Rx capsule,extended release .COMPLEX #90 caps albuterol sulfate 90 mcg/actuation 2 inh inhalation Q4-6H PRN 06/24/22 08/12/22 Rx aerosol inhaler shortness of breath or wheezing #8.5 grams beclomethasone dipropionate 80 1 inh inhalation BID #10.6 grams 06/24/22 08/12/22 Rx mcg/actuation HFA breath activated aerosol (Qvar RediHaler) ciclesonide 80 mcg/actuation 1 puff inhalation BID #6.1 grams 07/03/22 08/12/22 Rx aerosol inhaler (Alvesco) ascorbic acid (vitamin C) PO 08/12/22 08/12/22 History cholecalciferol (vitamin D3) PO 08/12/22 08/12/22 History multivitamin 1 tab PO DAILY 08/12/22 08/12/22 History omeprazole 20 mg capsule,delayed See Rx Instructions .Route 10/09/22 Rx release .COMPLEX #90 caps metformin 500 mg tablet,extended 500 mg PO .evening meal #180 tabs 12/03/22 Rx release 24 hr sertraline 100 mg tablet 200 mg (2 x 100 mg) PO ONCE PM 02/11/23 Rx #180 tabs Allergies Allergy/AdvReac Type Severity Reaction Status Date / Time amoxicillin [AMOXICILLIN] Allergy Mild GI Verified 04/05/23 21:57 erythromycin base Allergy Mild N/V Verified 04/05/23 21:57 [ERYTHROMYCIN BASE] lanolin [LANOLIN] Allergy Mild Roof of Verified 04/05/23 21:57 mouth tastes greasy Review of Systems Constitutional Comments: she had chills several days ago, not since then No fever or sweats Eyes Comments: w/o vision changes ENT Comments: still congested Cardiovascular Comments: w/o chest pain or palpitations Respiratory Comments: chronic shortness of breath Gastrointestinal Comments: w/o pain, w/o nausea or vomiting Genitourinary Comments: w/o dysuria Musculoskeletal Comments: chronic MSK pain, arthralgia, b/l shoulders Neurologic Comments: w/o focal muscle weakness or numbness Psychiatric Comments: stable mood Exam Vital Signs (past 8 hours): - 04/05/23 21:54 04/05/23 21:54 04/05/23 21:54 Temperature 97.0 F L Pulse Rate 42 L 45 L Respiratory Rate 18 Blood Pressure 131/70 131/70 Pulse Oximetry 96 97 Oxygen Delivery Method Room Air 04/05/23 22:00 04/05/23 22:03 04/05/23 22:03 Temperature Pulse Rate 115 H 92 H Respiratory Rate 26 H 28 H Blood Pressure 130/75 Pulse Oximetry 92 93 Oxygen Delivery Method 04/05/23 22:30 04/05/23 22:30 04/05/23 23:00 Temperature Pulse Rate 86 81 Respiratory Rate 27 H 30 H Blood Pressure 178/101 H Pulse Oximetry 93 91 Oxygen Delivery Method 04/05/23 23:00 04/05/23 23:30 04/05/23 23:31 Temperature Pulse Rate 62 Respiratory Rate 25 H Blood Pressure 178/113 H 175/72 H Pulse Oximetry 95 Oxygen Delivery Method 04/05/23 23:31 04/06/23 00:00 04/06/23 00:24 Temperature Pulse Rate 68 67 62 Respiratory Rate 30 H 20 18 Blood Pressure Pulse Oximetry 95 93 94 Oxygen Delivery Method Room Air 04/06/23 00:24 04/06/23 00:30 04/06/23 00:45 Temperature Pulse Rate 63 65 Respiratory Rate 30 H 36 H Blood Pressure 161/117 H Pulse Oximetry 92 93 Oxygen Delivery Method 04/06/23 00:45 04/06/23 01:00 04/06/23 01:08 Temperature Pulse Rate 64 78 Respiratory Rate 32 H 33 H Blood Pressure 151/115 H Pulse Oximetry 95 92 Oxygen Delivery Method 04/06/23 01:08 04/06/23 01:30 04/06/23 02:00 Temperature Pulse Rate 61 68 68 Respiratory Rate 24 22 Blood Pressure 158/111 H Pulse Oximetry 92 92 94 Oxygen Delivery Method 04/06/23 02:02 04/06/23 02:03 04/06/23 02:07 Temperature Pulse Rate 72 83 Respiratory Rate 20 Blood Pressure 176/72 H 176/72 H Pulse Oximetry Oxygen Delivery Method 04/06/23 02:21 04/06/23 02:21 04/06/23 02:30 Temperature Pulse Rate 72 76 Respiratory Rate 18 38 H Blood Pressure 183/81 H 183/81 H Pulse Oximetry 93 95 Oxygen Delivery Method Room Air Oxygen Delivery Method Room Air Const Other: sitting in bed in no distress HENMT Other: normocephalic, nasal congestion Eyes Other: perrla, eomi Neck Other: supple Resp Other: CTA Cardio Other: irregularly irregular, DANIEL on LSB/apex GI Other: not distended Skin Other: w/o rashes Extrem Other: w/o swelling Psych Other: lucid Objective Labs 04/05/23 22:00 04/05/23 22:00 Labs: Laboratory Results - last 24 hr 04/05/23 04/05/23 04/06/23 22:00 22:30 02:38 WBC 9.2 RBC 4.48 Hgb 11.7 L Hct 35.3 L MCV 78.7 L MCH 26.2 MCHC 33.3 RDW 16.3 H Plt Count 303 Neut % (Auto) 68.4 Lymph % (Auto) 23.3 L [place] % (Auto) 6.1 Eos % (Auto) 1.9 L Baso % (Auto) 0.3 Neut # (Auto) 6300 Lymph # (Auto) 2100 [place] # (Auto) 600 Eos # (Auto) 200 Baso # (Auto) 0 PT 14.0 H INR 1.2 APTT 33 Sodium 140 Potassium 2.9 L Chloride 97 L Carbon Dioxide 30 BUN 11 Creatinine 0.71 Estimated GFR > 60 BUN/Creatinine Ratio 15.5 Glucose 243 H Calcium 8.8 Magnesium 1.2 L Total Bilirubin 1.6 H AST 19 ALT 17 Alkaline Phosphatase 87 Total Creatine Kinase 73 Troponin I 0.013 NT-Pro-B Natriuret Pep 1420 H Total Protein 8.2 Albumin 4.5 Globulin 3.7 Albumin/Globulin Ratio 1.2 Lipase 141 D Urine Color Yellow Urine Appearance Clear Urine pH 6.0 Ur Specific [place] 1.015 Urine Protein Trace H Urine Glucose (UA) Negative Urine Ketones Negative Urine Occult Blood Negative Urine Nitrate Negative Urine Bilirubin Negative Urine Urobilinogen 2.0 H Ur Leukocyte Esterase 1+ H Urine RBC None seen Urine WBC 0-1/hpf Ur Squamous Epith Cells 5-10 /hpf H Urine Bacteria Occasional (0-1) Ur Culture Indicated? Cult not indicated Chlamy pneumoniae PCR Not detected Adenovirus (PCR) Not detected B.parapertussis DNA PCR Not detected Coronavirus OC43 (PCR) Not detected Coronavirus HKU1 (PCR) Not detected Coronavirus 229E (PCR) Not detected SARS-CoV-2 (PCR) Not detected Coronavirus NL63 (PCR) Not detected Human Metapneumovir PCR Not detected Influenza A (H1) PCR Not detected Influenza A (PCR) Not detected Influenza Type A (PCR) Not detected Influenza Type B (PCR) Not detected M. pneumoniae (PCR) Not detected Parainfluenza 1 (PCR) Not detected Parainfluenza 2 (PCR) Not detected Parainfluenza 3 (PCR) Not detected Parainfluenza 4 (PCR) Not detected RSV (PCR) Not detected Entero/Rhino (PCR) Not detected Assessment & Plan Assessment and plan (1) Hypokalemia: Status: Acute Plan: Supplemented, K was 2.9. It was 2.8 on 04/04 on prior visit to ED. Today she was supposed to be on Lasix 20 mEq with KCl 20 mEq - daily - both lasix and KCl were increased from 20 / 10 respectively, on 04/04 ED visit. She will have 60 of KCl iv until the next blood draw at 7 am. (2) Hypomagnesemia: Status: Acute Plan: 1.2 on admission. Had 2 g of MgS iv x 2 - total of 4 g Mg level at 7 AM. (3) Frequent unifocal PVCs: Status: Acute Plan: Less frequent with supplemented K and Mg Continued telemetry (4) Dizziness: Status: Acute Plan: likely related to above electrolyte deficiencies and arrhythmia Resolved at the time of admission while at rest (5) Hypertension: Qualifiers: Hypertension type: primary hypertension Qualified Code(s): I10 - Essential (primary) hypertension Status: Acute Plan: Diltiazem, Lisinopril (6) Atrial fibrillation: Qualifiers: Atrial fibrillation type: unspecified Qualified Code(s): I48.91 - Unspecified atrial fibrillation Status: Chronic Plan: Xarelto, iltiazem (7) Moderate persistent asthma without complication: Problem details: 07/2012 PFTs Status: Chronic Plan: Budesonide, albuterol (8) Hyperlipidemia: Status: Chronic Plan: statin (9) Type 2 diabetes mellitus without complication, without long-term current use of insulin: Status: None Plan: SS lispro (10) Osteoarthritis: Status: None Quality VTE Deep Vein Thrombosis/Pulmonary Embolism Present on Admission: No
[2023-04-06 03:57] LABS: MRSA (Nasal) PCR Not Detected (Not Detect)
[2023-04-06] MEDS: ACETAMINOPHEN 325 MG TABLET 650 MG PO (03:58)
[2023-04-06] MEDS: PANTOPRAZOLE DR 20 MG TABLET PO (06:34)
--- NOTE | 2023-04-06 06:47 | PC.ADMIT ---
[email or web address] Admission Note: The patient,Idris Lion,78 y/o, was given written information regarding hospital policies, unit procedures and contact persons. Patient's smoking status: Never smoker. Vital Signs - 8 hr 04/05/23 23:00 04/05/23 23:00 04/05/23 23:30 Pulse Rate 81 62 Respiratory Rate 30 H 25 H Blood Pressure 178/113 H Pulse Oximetry 91 95 Oxygen Delivery Method 04/05/23 23:31 04/05/23 23:31 04/06/23 00:00 Pulse Rate 68 67 Respiratory Rate 30 H 20 Blood Pressure 175/72 H Pulse Oximetry 95 93 Oxygen Delivery Method 04/06/23 00:24 04/06/23 00:24 04/06/23 00:30 Pulse Rate 62 63 Respiratory Rate 18 30 H Blood Pressure 161/117 H Pulse Oximetry 94 92 Oxygen Delivery Method Room Air 04/06/23 00:45 04/06/23 00:45 04/06/23 01:00 Pulse Rate 65 64 Respiratory Rate 36 H 32 H Blood Pressure 151/115 H Pulse Oximetry 93 95 Oxygen Delivery Method 04/06/23 01:08 04/06/23 01:08 04/06/23 01:30 Pulse Rate 78 61 68 Respiratory Rate 33 H 24 Blood Pressure 158/111 H Pulse Oximetry 92 92 92 Oxygen Delivery Method 04/06/23 02:00 04/06/23 02:02 04/06/23 02:03 Pulse Rate 68 72 83 Respiratory Rate 22 20 Blood Pressure 176/72 H Pulse Oximetry 94 Oxygen Delivery Method 04/06/23 02:07 04/06/23 02:21 04/06/23 02:21 Pulse Rate 72 Respiratory Rate 18 Blood Pressure 176/72 H 183/81 H Pulse Oximetry 93 Oxygen Delivery Method Room Air 04/06/23 02:30 04/06/23 02:30 04/06/23 03:00 Pulse Rate 76 73 Respiratory Rate 38 H 29 H Blood Pressure 183/81 H Pulse Oximetry 95 95 Oxygen Delivery Method Room Air 04/06/23 03:30 04/06/23 04:00 04/06/23 04:30 Pulse Rate 64 69 60 Respiratory Rate 31 H 34 H 26 H Blood Pressure Pulse Oximetry 92 91 94 Oxygen Delivery Method 04/06/23 05:00 04/06/23 05:30 04/06/23 06:00 Pulse Rate 63 61 80 Respiratory Rate 28 H Blood Pressure Pulse Oximetry 90 L Oxygen Delivery Method Patient admitted to room 226 at 0215. A/Ox4. A-fib CVR, few PVCs. K+ riders infusing, Mg+ rider complete in ED. BP 183/81, lisinopril also given in ED. Denies chest pain, shortness of breath, or dizziness. Dr Alberts saw patient via Tele camera.
[2023-04-06 07:57] LABS: HEMOLYSIS < 15 (0-50); Potassium 3.6 mmol/L (3.4-5.1)
[2023-04-06 08:01] LABS: Magnesium 2.4 mg/dL (1.6-2.3)
[2023-04-06] MEDS: dilTIAZem CD 120 MG CAP PO (08:28)
[2023-04-06] MEDS: SODIUM CHLORIDE 0.9% FLUSH 10 ML IV ×2 (08:30)
[2023-04-06] MEDS: POTASSIUM CHLORIDE 20 MEQ TAB 40 MEQ PO (10:59)
--- NOTE | 2023-04-06 11:17 | CM.DANOTE ---
DCP Assessment Note Patient is a 78yo F here under hospitalist care for hypokalemia, hypomagnesemia, and frequent PVCs. PCP Agatha Bell and self pay PARVEZ reviewed EMR. Per provider, d/c today home with family support. PEST CONTROL APPLICATOR entered room and introduced self and role. Patient standing up and eager to go home. Patient lives with two adult children and grandchildren. 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 Patient has a cane but doesn't use it. Patient reports no needs from CM team. Patient either is going to have child come transport home or will order a taxi for herself. Plan: patient to dc home today either with family transport or will call a taxi for herself. No needs identified at this time. CM team will continue to follow as needed. PARVEZ Friedman Discharge Planning/Care Management CM Discharge Assessment Start: 04/06/23 11:16 Freq: Status: Active Protocol: Document 04/06/23 11:16 (Rec: 04/06/23 11:17 [id number]) Discharge Planning Assessment Assigned Cardiac Technologist PARVEZ Chavez DPOA/Assigned Designee Name Trang Augustin (daughter) Contact Information [phone] Advance Directives? No History Provided By Patient Prior Living Arrangements House Household Members family Type of transporation used prior to Drives own vehicle admit Independent with ADL's Yes Is patient alert and oriented? Yes DME Already Rented / Owned Cane Comment owns a cane but doesn't use it Barriers to Discharge No Discharge Plan Home Transportation Arrangement either family or will call a taxi Referrals Initiated None needed Whiteboard Updated in Patient Room with Yes name and ext. # of Cardiac Technologist Review Status In Process Next Review Type Continued Stay Review
--- NOTE | 2023-04-08 17:28 | P.DS_ITS ---
History of Present Illness History of Present Illness Date Patient Seen: 04/06/23 Chief complaint: Dizzy/Headache/low potassium Narrative: Per admitting physician: 78 y/o with PMH of COPD, CAD, A-fib on Xarelto, prior ASD repair, diabetes type 2, HTN, HLD, who was seen in ED om 04/04 with fluid overload and upper respiratory infection and had her Lasix increased from 20 to 40 mg daily for 4 days with increase of potassium from 10 to 20 mEq, presented to ED complaining on dizziness. Workup revealed hypokalemia, hypomagnesemia and frequent PVCs and bigeminy. She was treated with Mg, received 2 x 2 g and K, receiving 4th 10 mEq rider, out of 6 ordered, at the time of admission. Over the past few hours number of PVCs decreased significantly on the monitor and she does not feel dizzy anymore. Placed in observation on telemetry to replace electrolytes. Discharge Providers Provider Date of admission: 04/06/23 01:17 Discharge Date: 04/06/23 Primary care physician: Agatha Oconnell DO Discharge provider: Titus Anderson MD Summary Hospital Course Discharge Diagnosis: 1. Hypokalemia 2. Hypomagnesemia 3. Dizziness 4. Hypertension 5. Atrial fibrillation 6. Asthma 7. Type 2 DM 8. Chronic CHFpEF 9. CAD Hospital Course: Ms. Lion was admitted with dehydration and significant symptomatic electrolyte disturbances. This was secondary to recent increase in her diuretics and she had not increased her potassium. She had her electrolytes repleted here and her symptoms improved. She was discharged with a higher dose of potassium and encouraged to follow up with PCP. Exam Vital Signs (past 8 hours): Oxygen Delivery Method Room Air Oxygen Flow Rate 0 Narrative Exam Narrative: GEN: no acute distress CV: regular rate and rhythm PULM: clear bilaterally ABD: soft, nontender Objective Labs 04/05/23 22:00 04/06/23 07:05 [facility] Medical History Tricuspid valve regurgitation Mitral valvular regurgitation Nephrolithiasis Cervicalgia Chronic kidney disease (CKD) stage G3a/A1, moderately decreased glomerular filtration rate (GFR) between 45-59 mL/min/1.73 square meter and albuminuria creatinine ratio less than 30 mg/g Hematuria Hypertension Hyperlipidemia CAD (coronary artery disease) Atrial fibrillation Right trigger finger Right knee dislocation Shoulder pain, bilateral Diabetes mellitus Surgical History History of repair of atrial septal defect Status post excision of lipoma (~07/17/08) Status post arthroscopy (03/16/13) Status post cardiac catheterization (~2011) History of carpal tunnel repair (~1998) History of carpal tunnel repair (~2013) Family History Father CAD (coronary artery disease) CVA (cerebral infarction) Hypertension Mother Abdominal aortic aneurysm without rupture Social History household members: family Smoking Status: Never smoker Discharge Plan Discharge Plan Patient Disposition: Home Provider Discharge Comment: Ms. Lion came in to the hospital with multiple issues and was found to have low electrolytes. She improved with electrolyte replacement. She is discharged with protonix to help reduce acid in the stomach. She should follow up with her PCP to make sure she is improving, and if not having a better appetite then consider getting an endoscopy. She should take flonase for her runny nose. She should follow up with her PCP to get tested for sleep apnea. She is given a higher dose of her potassium to take daily to help keep her electrolyte levels normal. Discharge orders & Medications Prescriptions: New pantoprazole [Protonix] 40 mg tablet,delayed release (DR/EC) 40 mg PO DAILY Qty: 30 0RF fluticasone propionate [Flonase Allergy Relief] 50 mcg/actuation spray,suspension 1 spray intranasal DAILY Qty: 16 0RF Rx Instructions: administer into each nostril potassium chloride [Klor-Con] 20 mEq packet 20 meq PO DAILY Qty: 30 0RF Continued aspirin 81 mg Tablet,Delayed Release (Dr/Ec) 81 mg PO DAILY Qty: 0 nitroglycerin [Nitrostat] 0.4 MG tablet, sublingual 0.4 mg Sublingual PRN Qty: 30 0RF levalbuterol tartrate [Xopenex HFA] 45 MCG/INH HFA aerosol inhaler 2 puff INH Q4HP PRNQty: 15 0RF (DME) handi cap placard See Rx Instructions .Route .MEDSUPPLY Qty: 1 0RF Rx Instructions: As directed lisinopril 20 mg tablet See Rx Instructions .ROUTE .COMPLEX Qty: 90 0RF Dose Instruction: TAKE 1 TABLET BY MOUTH ONCE DAILY FOR HIGH BLOOD PRESSURE. Rx Instructions: TAKE 1 TABLET BY MOUTH ONCE DAILY FOR HIGH BLOOD PRESSURE. atorvastatin 40 mg tablet See Rx Instructions .ROUTE .COMPLEX Qty: 90 0RF Dose Instruction: TAKE 1 TABLET BY MOUTH ONCE NIGHTLY FOR HIGH CHOLESTEROL. Rx Instructions: TAKE 1 TABLET BY MOUTH ONCE NIGHTLY FOR HIGH CHOLESTEROL. furosemide 20 mg tablet See Rx Instructions .ROUTE .COMPLEX Qty: 90 0RF Dose Instruction: TAKE 1 TABLET BY MOUTH ONCE DAILY FOR HEART. Rx Instructions: TAKE 1 TABLET BY MOUTH ONCE DAILY FOR HEART. diltiazem HCl [DILT-XR] 120 mg capsule,ext.rel 24h degradable See Rx Instructions .ROUTE .COMPLEX Qty: 180 0RF Dose Instruction: TAKE 1 CAPSULE (120 MG TOTAL) BY MOUTH 2 (TWO) TIMES A DAY Rx Instructions: TAKE 1 CAPSULE (120 MG TOTAL) BY MOUTH 2 (TWO) TIMES A DAY albuterol sulfate 90 mcg/actuation HFA aerosol inhaler 2 inh inhalation Q4-6H PRN (Reason: shortness of breath or wheezing) Qty: 8.5 3RF Qvar RediHaler 80 mcg/actuation HFA aerosol breath activated 1 inh INHALATION BID Qty: 10.6 3RF Alvesco 80 mcg/actuation HFA aerosol inhaler 1 puff inhalation BID Qty: 6.1 3RF metformin 500 mg tablet extended release 24 hr 500 mg PO .evening meal Qty: 180 0RF Rx Instructions: take with meal sertraline 100 mg tablet 200 mg PO ONCE PM Qty: 180 2RF cholecalciferol (vitamin D3) PO ascorbic acid (vitamin C) PO multivitamin Tablet 1 tab PO DAILY Glucagon Emergency Kit (human) 1 mg recon soln 1 mg IM ONCE Qty: 1 0RF ipratropium bromide 0.2 MG/1 ML solution 2.5 ml INH BID PRN (Reason: Shortness Of Breath) Glucose: Home Monitoring Kit 1 kit DIRECTED Spacer: Inhaler Spacer Device 1 pac DIRECTED Nebulizer: Home Unit 1 pkg DIRECTED Xarelto 20 mg Tablet 20 mg PO DAILY Discontinued potassium chloride 10 mEq capsule, extended release See Rx Instructions .ROUTE .COMPLEX Qty: 90 0RF Dose Instruction: TAKE 1 CAPSULE (10 MEQ TOTAL) BY MOUTH DAILY Rx Instructions: TAKE 1 CAPSULE (10 MEQ TOTAL) BY MOUTH DAILY omeprazole 20 mg capsule,delayed release(DR/EC) See Rx Instructions .ROUTE .COMPLEX Qty: 90 1RF Dose Instruction: TAKE 1 CAPSULE BY MOUTH DAILY Rx Instructions: TAKE 1 CAPSULE BY MOUTH DAILY Follow up/Referrals: Agatha Oconnell DO [Primary Care Provider] - 04/21/23 11:00 am (Appt:04/21 @ 11:[address] roche please arrive 15 min prior to your scheduledd appointment time ) Diet/Activity/Treatments Diet: Regular Visit Report/Discharge Packet Stand Alone Forms: Patient Portal/API, Stroke Signs & Symptoms Discharge Data Primary Care Provider: Agatha Oconnell Attending Provider: Edin Reynaga Admit Date/Time: 04/06/23 01:17 Quality VTE Deep Vein Thrombosis/Pulmonary Embolism Present on Admission: No
== END 2023-04-06 11:28 | disposition home or self-care (01) ==
LOC: ED 04-06 00:49 → AC 04-06 01:18 → ICU 04-06 01:56
PROVIDERS: Admitting Provider Internal Medicine; Emergency Provider Emergency Medicine; Family Provider Family Medicine; PCP Family Medicine; Referring Provider Emergency Medicine; Visit Provider Internal Medicine
DX: I11.0 Hypertensive heart disease with heart failure (principal); I50.32 Chronic diastolic (congestive) heart failure; I13.0 Hypertensive heart and chronic kidney disease with heart failure and stage 1 through stage 4 chronic kidney disease, or unspecified chronic kidney disease; N18.31 Chronic kidney disease, stage 3a; E11.22 Type 2 diabetes mellitus with diabetic chronic kidney disease; E87.6 Hypokalemia; E83.42 Hypomagnesemia; R42 Dizziness and giddiness; I25.10 Atherosclerotic heart disease of native coronary artery without angina pectoris; J44.9 Chronic obstructive pulmonary disease, unspecified; I48.91 Unspecified atrial fibrillation; Z11.52 Encounter for screening for COVID-19; Z79.01 Long term (current) use of anticoagulants; Z79.84 Long term (current) use of oral hypoglycemic drugs
CPT/HCPCS: 36415; 71045; 80053; 81001; 82550; 82962; 83690; 83735; 83880; 84132; 84484; 85025; 85610; 85730; 87633; 87797; 93005; 96365; 96366; 99284; 99285; G0378; J3475

== ENCOUNTER → 2023-04-16 15:43 | Outpatient (CLI) | payer OTHER, SELFPAY ==
[2023-04-16 15:34] VITALS: BMI 28.3
[2023-04-16 16:22] LABS: BUN Creatinine Ratio 25.3 (6-22); Blood Urea Nitrogen 21 mg/dL (7-17); Calcium 10.4 mg/dL (8.4-10.2); Carbon Dioxide 30 mmol/L (22-32); Chloride 103 mmol/L (98-107); Estimated Glomerular Filt Rate > 60 mL/min (>60); Glucose 177 mg/dL (80-110); HEMOLYSIS < 15 (0-50); Potassium 5.1 mmol/L (3.4-5.1); Sodium 141 mmol/L (137-145)
[2023-04-26 07:07] LABS: Magnesium, RBC 4.7 mg/dL (3.7-7.0)
== END ==
PROVIDERS: Family Provider Family Medicine; PCP Family Medicine; Referring Provider Family Medicine; Visit Provider Family Medicine
DX: E83.42 Hypomagnesemia (principal); E87.6 Hypokalemia; I49.3 Ventricular premature depolarization
CPT/HCPCS: 36415; 80048; 83735

== ENCOUNTER 2023-09-24 08:20 | Emergency (ER) | payer OTHER, SELFPAY ==
[2023-04-16 15:34] VITALS: BMI 28.3
[2023-09-24 08:31] VITALS: BP 135/74; PULSE 74; RESP 18; TEMP 36.7; O2SAT 94; BMI 28.3
--- NOTE | 2023-09-24 08:52 | PC.NURSE ---
Pt states that she was tryingto get out of bed and felt her knee twist and crack. Pt has hx of arthritis and has been told she needs to have a knee replacement but has not been able to schedule the surgery because she still works everyday. Pt is a&ox4. States that her pain is about a 4/10 when she is sitting and not moving extremity but ramps up to 8/10 when she is moving around.
--- NOTE | 2023-09-24 09:27 | DI.RAD.S_ITS ---
PROCEDURE: XR KNEE RT 3V INDICATIONS: sudden right knee swelling. TECHNIQUE: 3 views of the knee were acquired. COMPARISON: [facility], CR, XR KNEE RT 3V, 04/20/2019, 10:38. [facility], CR, XR KNEE RT 3V, 11/04/2017, 13:10. FINDINGS: Bones: Moderate to severe degenerative changes, with joint space narrowing particularly in the lateral compartment. Numerous corticated periarticular fragments and intra-articular fragments are seen, likely degenerative changes and/or from prior injury. No acute displaced fracture or dislocation Soft tissues: No suspicious calcifications elsewhere. Possible small knee joint effusion. IMPRESSION: Moderate to severe degenerative changes, particularly in the lateral compartment. This is worse compared to 2019. Numerous periarticular and intra-articular bone fragments are present. Possible small knee effusion. If there is high concern for further derangement, consider MRI evaluation. Dictated by: Cody Nicole M.D. on 09/24/2023 at 9:47 Approved by: Cody Nicole M.D. on 09/24/2023 at 9:48
--- NOTE | 2023-09-24 09:46 | ED_ITS ---
HPI - Extremity Problem General Chief complaint: Extremity Problem,Nontraumatic Stated complaint: R knee swelling Time Seen by Provider: 09/24/23 08:40 Source: patient Mode of arrival: Ambulatory History of Present Illness HPI Narrative: 78-year-old female with history [id number] diabetes, congestive heart failure, COPD, atrial fibrillation anticoagulated on Xarelto presents by private vehicle from home for right knee swelling. Patient states that she has severe osteoarthritis and has previously been recommended a knee replacement, however she declined due to life circumstances. She states that she has to be very careful when she shifts in bed otherwise it can cause her problems. This morning she rolled over without bracing her knee and noticed a popping noise. Since then her knee has been painful and swollen. She can ambulate with a cane, however it is painful. She has not followed up in quite some time with orthopedic surgery and can no longer remember who her surgeon is. Related Data Home Medications Medication Instructions Recorded Confirmed aspirin 81 mg tablet,delayed 81 mg PO DAILY ##0 03/03/11 08/12/22 release Glucose: Home Monitoring Kit 1 kit DIRECTED 11/04/17 08/12/22 Nebulizer: Home Unit 1 pkg DIRECTED 11/04/17 08/12/22 Spacer: Inhaler Spacer Device 1 pac DIRECTED 11/04/17 08/12/22 ipratropium bromide 0.02 % 2.5 ml INH BID PRN Shortness Of 11/04/17 08/12/22 solution for inhalation Breath rivaroxaban 20 mg tablet (Xarelto) 20 mg PO DAILY 04/20/19 08/12/22 ascorbic acid (vitamin C) PO 08/12/22 08/12/22 cholecalciferol (vitamin D3) PO 08/12/22 08/12/22 multivitamin 1 tab PO DAILY 08/12/22 08/12/22 Previous Rx's Medication Instructions Recorded nitroglycerin 0.4 mg sublingual 0.4 mg sublingual PRN #30 tabs 07/20/16 tablet (Nitrostat) levalbuterol tartrate 45 2 puff INH Q4HP PRN ##15 03/31/17 mcg/actuation aerosol inhaler (Xopenex HFA) glucagon (human recombinant) 1 mg 1 mg IM ONCE #1 ea 11/24/18 solution for injection (Glucagon Emergency Kit) handi cap erik #1 ea 06/26/20 lisinopril 20 mg tablet See Rx Instructions .Route 10/24/21 .COMPLEX #90 tabs albuterol sulfate 90 mcg/actuation 2 inh inhalation Q4-6H PRN 06/24/22 aerosol inhaler shortness of breath or wheezing #8.5 grams beclomethasone dipropionate 80 1 inh inhalation BID #10.6 grams 06/24/22 mcg/actuation HFA breath activated aerosol (Qvar RediHaler) ciclesonide 80 mcg/actuation 1 puff inhalation BID #6.1 grams 07/03/22 aerosol inhaler (Alvesco) metformin 500 mg tablet,extended 500 mg PO .evening meal #180 tabs 12/03/22 release 24 hr fluticasone propionate 50 1 spray intranasal DAILY #16 grams 04/06/23 mcg/actuation nasal spray,suspension (Flonase Allergy Relief) potassium chloride 10 mEq 10 meq PO BID #180 caps 04/16/23 capsule,extended release sertraline 200 mg capsule 200 mg PO DAILY #90 caps 04/16/23 atorvastatin 40 mg tablet 40 mg PO DAILY #90 tabs 05/27/23 diltiazem HCl 120 mg 120 mg PO BID #180 caps 06/01/23 capsule,extended release 24 hr, controlled (DILT-XR) pantoprazole 40 mg tablet,delayed 40 mg PO DAILY #90 tabs 07/21/23 release (Protonix) furosemide 20 mg tablet 20 mg PO DAILY #90 tabs 08/20/23 Allergies Allergy/AdvReac Type Severity Reaction Status Date / Time amoxicillin [AMOXICILLIN] Allergy Mild GI Verified 04/05/23 21:57 erythromycin base Allergy Mild N/V Verified 04/05/23 21:57 [ERYTHROMYCIN BASE] lanolin [LANOLIN] Allergy Mild Roof of Verified 04/05/23 21:57 mouth tastes greasy coconut Allergy Swelling Verified 09/24/23 08:37 of Lip/Tongue/Throat Review of Systems Review of Systems Narrative: See HPI Patient History Medical History Tricuspid valve regurgitation Mitral valvular regurgitation Nephrolithiasis Cervicalgia Chronic kidney disease (CKD) stage G3a/A1, moderately decreased glomerular filtration rate (GFR) between 45-59 mL/min/1.73 square meter and albuminuria creatinine ratio less than 30 mg/g Hematuria Hypertension Hyperlipidemia CAD (coronary artery disease) Atrial fibrillation Right trigger finger Right knee dislocation Shoulder pain, bilateral Diabetes mellitus Surgical History History of repair of atrial septal defect Status post excision of lipoma (~07/17/08) Status post arthroscopy (03/16/13) Status post cardiac catheterization (~2011) History of carpal tunnel repair (~1998) History of carpal tunnel repair (~2013) Family History Father CAD (coronary artery disease) CVA (cerebral infarction) Hypertension Mother Abdominal aortic aneurysm without rupture Social History household members: family Smoking Status: Never smoker Smoking Status: Never smoker alcohol intake frequency: holidays/special occasions only Substance Use Type: does not use Exam Initial Vital Signs Initial Vital Signs: Vital Signs Temperature 98.0 F 09/24/23 08:31 Pulse Rate 74 09/24/23 08:31 Respiratory Rate 18 09/24/23 08:31 Blood Pressure 135/74 09/24/23 08:31 Pulse Oximetry 94 09/24/23 08:31 Oxygen Delivery Method Room Air 09/24/23 08:31 Const: Awake, alert, no acute distress, nontoxic appearing MSK: Swelling over right knee, particularly over patellar region, full range of motion, no calf tenderness Skin: Warm, Dry, intact, no rashes Neuro: AO x3, CN II-XII grossly intact, moves all extremities Course Orders Ordered: ED Orders 09/24/23 09:27 XR knee RT 3V Stat Vital Signs Vital signs: Vital Signs - 8 hr 09/24/23 10:19 Pulse Rate 67 Blood Pressure 150/67 H Pulse Oximetry 97 Oxygen Delivery Method Room Air MDM - Extremity (Nontraumatic) Differential Diagnosis Differential diagnosis: Likely herpes zoster, gout and cellulitis Imaging Data Extremity x-ray #1: Radiologist's Impression: PROCEDURE: XR KNEE RT 3V INDICATIONS: sudden right knee swelling. TECHNIQUE: 3 views of the knee were acquired. COMPARISON: [facility], CR, XR KNEE RT 3V, 04/20/2019, 10:38. [facility], CR, XR KNEE RT 3V, 11/04/2017, 13:10. FINDINGS: Bones: Moderate to severe degenerative changes, with joint space narrowing particularly in the lateral compartment. Numerous corticated periarticular fragments and intra-articular fragments are seen, likely degenerative changes and/or from prior injury. No acute displaced fracture or dislocation Soft tissues: No suspicious calcifications elsewhere. Possible small knee joint effusion. IMPRESSION: Moderate to severe degenerative changes, particularly in the lateral compartment. This is worse compared to 2019. Numerous periarticular and intra-articular bone fragments are present. Possible small knee effusion. If there is high concern for further derangement, consider MRI evaluation. Dictated by: Cody Nicole M.D. on 09/24/2023 at 9:47 Approved by: Cody Nicole M.D. on 09/24/2023 at 9:48 MDM Narrative Medical decision making narrative: Atraumatic right knee pain after rolling over in bed. She does have marked swelling over her right knee, no reported history of trauma. Patient was anticoagulated, history is not consistent with blood clot or thrombus. X-ray imaging shows severe degenerative changes with periarticular an intra-articular bone fragments. Comparison is 07/06/2018, no interval exams. Patient placed in Joni wrap bandage for comfort, she may have irritated or torn something due to her severe arthritis and position change, however at this time there is no indication for emergent MRI or other advanced imaging. Patient counseled on x- ray imaging findings and recommended follow up with Orthopedic surgery. Rice instructions counseled at bedside. Discharge Plan Departure Patient Disposition: Home Clinical Impression: Knee swelling Instructions: DI for Osteoarthritis Activity Restrictions/Additional Instructions: Wear the Joni wrap bandage and elevate your leg when at rest. You may apply ice as needed for swelling. Follow up with your orthopedic surgeon. Prescriptions: No Action aspirin 81 mg Tablet,Delayed Release (Dr/Ec) 81 mg PO DAILY Qty: 0 nitroglycerin [Nitrostat] 0.4 MG tablet, sublingual 0.4 mg Sublingual PRN Qty: 30 0RF levalbuterol tartrate [Xopenex HFA] 45 MCG/INH HFA aerosol inhaler 2 puff INH Q4HP PRNQty: 15 0RF (DME) handi cap placard See Rx Instructions .Route .MEDSUPPLY Qty: 1 0RF Rx Instructions: As directed lisinopril 20 mg tablet See Rx Instructions .ROUTE .COMPLEX Qty: 90 0RF Dose Instruction: TAKE 1 TABLET BY MOUTH ONCE DAILY FOR HIGH BLOOD PRESSURE. Rx Instructions: TAKE 1 TABLET BY MOUTH ONCE DAILY FOR HIGH BLOOD PRESSURE. albuterol sulfate 90 mcg/actuation HFA aerosol inhaler 2 inh inhalation Q4-6H PRN (Reason: shortness of breath or wheezing) Qty: 8.5 3RF Qvar RediHaler 80 mcg/actuation HFA aerosol breath activated 1 inh INHALATION BID Qty: 10.6 3RF Alvesco 80 mcg/actuation HFA aerosol inhaler 1 puff inhalation BID Qty: 6.1 3RF metformin 500 mg tablet extended release 24 hr 500 mg PO .evening meal Qty: 180 0RF Rx Instructions: take with meal atorvastatin 40 mg tablet 40 mg PO DAILY Qty: 90 0RF diltiazem HCl [DILT-XR] 120 mg capsule,ext.rel 24h degradable 120 mg PO BID Qty: 180 0RF pantoprazole [Protonix] 40 mg tablet,delayed release (DR/EC) 40 mg PO DAILY Qty: 90 0RF furosemide 20 mg tablet 20 mg PO DAILY Qty: 90 1RF cholecalciferol (vitamin D3) PO ascorbic acid (vitamin C) PO multivitamin Tablet 1 tab PO DAILY Glucagon Emergency Kit (human) 1 mg recon soln 1 mg IM ONCE Qty: 1 0RF potassium chloride 10 mEq capsule, extended release 10 meq PO BID Qty: 180 1RF sertraline 200 mg capsule 200 mg PO DAILY Qty: 90 1RF ipratropium bromide 0.2 MG/1 ML solution 2.5 ml INH BID PRN (Reason: Shortness Of Breath) Glucose: Home Monitoring Kit 1 kit DIRECTED Spacer: Inhaler Spacer Device 1 pac DIRECTED Nebulizer: Home Unit 1 pkg DIRECTED Xarelto 20 mg Tablet 20 mg PO DAILY fluticasone propionate [Flonase Allergy Relief] 50 mcg/actuation spray,suspension 1 spray intranasal DAILY Qty: 16 0RF Rx Instructions: administer into each nostril Referrals: Aly Lazaro MD [Physician] - Agatha Oconnell DO [Primary Care Provider] - Stand Alone Forms: Patient Portal/API
[2023-09-24 10:19] VITALS: BP 150/67; PULSE 67; O2SAT 97
== END 2023-09-24 10:19 | disposition home or self-care (01) ==
PROVIDERS: Emergency Provider Emergency Medicine; Family Provider Family Medicine; PCP Family Medicine
DX: M25.461 Effusion, right knee (principal); Z79.01 Long term (current) use of anticoagulants
CPT/HCPCS: 73562; 99281; 99283

== ENCOUNTER → 2024-03-22 09:54 | Outpatient (CLI) | payer OTHER, SELFPAY ==
[2023-04-16 15:34] VITALS: BMI 28.3
[2024-03-22 11:08] LABS: Add Manual Diff / Slide Review NO; Basophils Absolute Auto 0 /uL (0-100); Basophils Percent Auto 0.4 % (0-2); Eosinophils Absolute Auto 100 /uL (0-450); Eosinophils Percent Auto 2.5 % (2-4); Hematocrit 40.1 % (36-46); Lymphocytes Absolute Auto 1600 /uL (1100-4500); Lymphocytes Percent Auto 27.2 % (25-40); Mean Corpuscular HGB Conc 32.4 % (30-36); Mean Corpuscular Hemoglobin 27.6 PG (26-34); Mean Corpuscular Volume 85.3 fL (80-100); Monocytes Absolute Auto 400 /uL (0-900); Monocytes Percent Auto 6.3 % (3-14); Neutrophils Absolute Auto 3700 /uL (1500-7000); Neutrophils Percent Auto 63.6 % (50-75); Platelet Count 271 X10^3/uL (150-400); Red Cell Distribution Width 15.4 % (11.6-14.8); White Blood Cell Count 5.8 X10^3/uL (4.5-11.0)
[2024-03-22 11:15] LABS: Hemoglobin A1C% w Est Avg Glu 6.9 % (4.0-6.0)
[2024-03-22 11:20] LABS: Alanine Aminotransferase 11 IU/L (<35); Albumin 4.5 g/dL (3.5-5.0); Albumin Globulin Ratio 1.3 (1.0-2.8); Alkaline Phosphatase 92 U/L (38-126); Aspartate Aminotransferase 22 IU/L (14-36); BUN Creatinine Ratio 21.8 (6-22); Bilirubin Total 1.1 mg/dL (0.2-1.3); Blood Urea Nitrogen 17 mg/dL (7-17); Calcium 9.4 mg/dL (8.4-10.2); Carbon Dioxide 29 mmol/L (22-32); Chloride 104 mmol/L (98-107); Estimated Glomerular Filt Rate > 60 mL/min (>60); Globulin 3.4 g/dL (1.7-4.1); Glucose 153 mg/dL (80-110); HEMOLYSIS < 15 (0-50); Potassium 3.9 mmol/L (3.4-5.1); Sodium 141 mmol/L (137-145); Total Protein 7.9 g/dL (6.3-8.2)
[2024-03-22 11:55] LABS: Ferritin 46 ng/mL (11-264)
== END ==
PROVIDERS: Family Provider Family Medicine; PCP Family Medicine; Referring Provider Family Medicine; Visit Provider Family Medicine
DX: I25.10 Atherosclerotic heart disease of native coronary artery without angina pectoris (principal); E83.42 Hypomagnesemia; I10 Essential (primary) hypertension; E11.9 Type 2 diabetes mellitus without complications; N81.9 Female genital prolapse, unspecified; R80.9 Proteinuria, unspecified; E66.9 Obesity, unspecified; Z68.30 Body mass index [BMI] 30.0-30.9, adult; D64.9 Anemia, unspecified; I48.91 Unspecified atrial fibrillation; E87.6 Hypokalemia
CPT/HCPCS: 36415; 80053; 82728; 83036; 85025

== ENCOUNTER → 2025-03-19 11:20 | Outpatient (CLI) | payer OTHER, SELFPAY ==
[2023-04-16 15:34] VITALS: BMI 28.3
[2025-03-19 12:49] LABS: Blood Urea Nitrogen 14 mg/dL (7-17); Calcium 9.3 mg/dL (8.4-10.2); Carbon Dioxide 28 mmol/L (22-32); Chloride 102 mmol/L (98-107); Estimated Glomerular Filt Rate > 60 mL/min (>60); Glucose 170 mg/dL (70-99); HEMOLYSIS < 15 (0-50); Potassium 4.5 mmol/L (3.4-5.1); Sodium 140 mmol/L (137-145)
== END ==
PROVIDERS: Family Provider Family Medicine; PCP Family Medicine; Referring Provider Internal Medicine Cardiovascular Disease; Visit Provider Internal Medicine Cardiovascular Disease
DX: I10 Essential (primary) hypertension (principal); I25.10 Atherosclerotic heart disease of native coronary artery without angina pectoris; I48.20 Chronic atrial fibrillation, unspecified; I50.32 Chronic diastolic (congestive) heart failure
CPT/HCPCS: 36415; 80048